=== PATIENT | female | born 1975 | race Caucasian/White ===

== ENCOUNTER 2022-07-14 08:15 | Outpatient (CLI) | payer OTHER, SELFPAY ==
--- NOTE | ~2022-07-14 | CT_ITS ---
EXAMINATION: CT abdomen pelvis w con DATE: 07/14/2022 09:01 INDICATION: Postoperative abdominal pain. Endometrial cancer. TECHNIQUE: Computed tomography (CT) of the abdomen and pelvis was performed with 100 mL Omnipaque 350 intravenous contrast. Automated exposure control and iterative reconstruction technique were employe d. The dose-length product was 1473.47 mGy-cm. COMPARISON: None. FINDINGS: The visualized portions of the lung bases demonstrate minimal atelectasis. No pleural effus ion. The heart size is normal. No pericardial effusion. The liver demonstrates hypertrophy of left la teral segment and surface nodularity, consistent with cirrhosis. The spleen, gallbladder, pancreas, a nd right adrenal gland are normal. There is a 3.9 cm mass in left adrenal gland measuring soft tissue attenuation. There is cortical thinning of the kidneys. There are no dilated loops of bowel. There a re changes of ileocolic anastomosis. There is mild periportal lymphadenopathy, likely reactive. There is no free intraperitoneal fluid. There is a subcutaneous fluid collection in anterior abdominal wal l measuring 11.5 x 3.1 x 8.2 cm. There is severe lumbar spondylosis. IMPRESSION: 1. 11.5 x 3.1 x 8.2 cm fluid collection in anterior abdominal wall. The differential diagnosis includ es abscess, seroma, and subacute hematoma. 2. Cirrhosis of the liver. 3. 3.9 cm left adrenal mass. In the absence of known malignancy, this finding is most likely an adeno ma. Abdomen CT without and with contrast is recommended. 4. Mild periportal lymphadenopathy, likely reactive. Reviewed, dictated and finalized at location A. CONDITIONING SUPERVISOR IMPRESSION: 1. 11.5 x 3.1 x 8.2 cm fluid collection in anterior abdominal wall. The differe ntial diagnosis includes abscess, seroma, and subacute hematoma. 2. Cirrhosis of the liver. 3. 3.9 cm left adrenal mass. In the absence of known malignancy, this finding i s most likely an adenoma. Abdomen CT without and with contrast is recommended. 4. Mild periportal lymphadenopathy, likely reactive.
== END 2022-07-14 08:16 | disposition home or self-care (01) ==
PROVIDERS: Visit Provider Obstetrics & Gynecology Gynecology
DX: G89.18 Other acute postprocedural pain (principal); C54.1 Malignant neoplasm of endometrium; D35.02 Benign neoplasm of left adrenal gland; R59.0 Localized enlarged lymph nodes; K74.69 Other cirrhosis of liver
CPT/HCPCS: 74177; Q9967

== ENCOUNTER 2023-10-28 08:50 | Outpatient (CLI) | payer OTHER, SELFPAY ==
[2023-11-08 16:01] VITALS: BMI 40.2
--- NOTE | 2023-11-08 16:01 | WPDHOMESLEEP ---
Sleep Study - Home Unattended Date of Study: 10/28/23 Ordering Provider: Cindi Rodríguez APRN Interpreting Provider: Yue Sauer, DO Home Sleep Study Type: Watch PAT Height: 1.65 m Weight: 109.769 kg Body Mass Index: 40.2 Neck Circumference (inches): 16 [place]: 6 Reason for Sleep Study Loud snoring Sleep History The patient is a 48-year-old female with anxiety, depression, Crohn's disease, obesity and current tobacco use that had a sleep study ordered by her primary care for evaluation of sleep apnea. The patient denies awakening from sleep short of breath. She denies awakening at night with heartburn, belching or cough. She constantly snores loudly enough that others complain. She rarely has trouble sleeping when she has a cold. She denies waking up gasping for air throughout the night. She occasionally has breathing problems at night observed by herself or others. She occasionally sweats excessively at night. She denies having heart palpitations or irregular heartbeats during the night. She denies falling asleep during the day and never while driving. She occasionally experiences loss of muscle tone when extremely emotional. She rarely has trouble at school or work due to sleepiness. She denies feeling unable to move while waking up or falling asleep. She occasionally experiences vivid dreamlike scenes upon awakening or falling asleep. She denies feeling afraid of going to sleep. She rarely has nightmares. She occasionally remembers her dreams. She frequently has thoughts racing through her mind. She frequently feels sad, depressed and anxious. She occasionally notices parts of her body jerk. She rarely kicks during the night. She rarely has crawling and aching feelings in her legs but occasionally has leg pain during the night. She rarely grinds her teeth during sleep and rarely awakens with morning jaw pain. She is rarely bothered by pain during the day and rarely awakened by pain during the night. He rarely wakes up feeling stiff in the morning. She rarely wakes up with sore or achy muscles. She rarely wakes up with pain in the neck, spine and other joints. She goes to bed at 11:00 p.m. on weekdays and between 12-1 a.m. on the weekends. It takes her 10 minutes to fall asleep. She wakes up twice throughout the night to adjust her position and is able to fall asleep immediately. She wakes up at 7:15 a.m. on weekdays. She wakes up at 5:30 a.m. on the weekends, will stay up for an hour and then go back to bed. She will wake up between 10-11 a.m.. She typically gets 8-9 hours of sleep per night. She lives with her roommate and son. She denies consuming any caffeinated beverages within 2 hours of bedtime. She denies engaging in physical exercise before bedtime. She will watch television before falling asleep. She denies reading before falling asleep. She denies taking naps in the afternoon or the evening. She consumes 2 caffeinated beverages per day. She smokes 1 pack of cigarettes per day. She denies alcohol use. She does use marijuana. [facility] Past Medical History Medical History Acute Crohn's disease Anxiety Cancer Crohn's colitis Hypersomnia Loud snoring Sebaceous cyst Surgical History Surgical History H/O hernia repair 05/2022 H/O: hysterectomy 05/2022 Family History Family History Mother Breast cancer Bladder cancer Grandparent Lung cancer Social History Social History Smoking packs per day: 1 Smoking cigarettes per day: 20.0 Smoking status: Current some day smoker Alcohol intake: current Substance use: current Substance use type: marijuana Medications Home Medications Medication Instructions Recorded Confirmed Type busdinah
== END 2023-11-02 07:30 | disposition home or self-care (01) ==
LOC: ANHCSM 08:50
PROVIDERS: PCP Family Medicine; Visit Provider Nurse Practitioner Family
DX: G47.33 Obstructive sleep apnea (adult) (pediatric) (principal); G47.10 Hypersomnia, unspecified; R06.83 Snoring
CPT/HCPCS: 95800

== ENCOUNTER 2023-12-03 08:40 | Outpatient (CLI) | payer OTHER, SELFPAY ==
--- NOTE | 2023-12-27 00:08 | WPDSLEEPSTUD ---
Sleep Study Date of Study: 12/03/23 Ordering Provider: MARK Dudley Interpreting Physician: Cordelia Anderson MD Sleep Study Type: CPAP Titration Height: 1.65 m Weight: 109.316 kg Body Mass Index: 40.1 Neck Circumference (inches): 16 [place]: 6 Reason for Sleep Study 10/28/2023, home sleep test using WatchPat showing severe obstructive sleep apnea, AHI 49.7 with desaturation to 85% Patient presents for PAP titration Sleep History John Mclean is a 48-year-old female who had a home sleep test 10/28/2023 showing severe obstructive sleep apnea, returns for a CPAP titration. Medical co-morbidities include anxiety, depression, Crohn's disease, obesity, and tobacco use. The patient denies awakening from sleep feeling short of breath. She denies awakening at night with heartburn, belching or coughing. She constantly snores loudly enough that others complain. She rarely has trouble sleeping when she has a cold. She denies waking up gasping for air. She occasionally has breathing problems at night observed by others. She occasionally sweats excessively at night. She denies having heart palpitations or irregular heartbeats during the night. She denies falling asleep during the day and never while driving. She occasionally experiences loss of muscle tone when extremely emotional. She rarely has trouble at school or work due to sleepiness. She denies feeling unable to move while waking up or falling asleep. She occasionally experiences vivid dreamlike scenes upon awakening or falling asleep. She denies feeling afraid of going to sleep. She rarely has nightmares. She occasionally remembers her dreams. She frequently has thoughts racing through her mind. She frequently feels sad, depressed and anxious. She occasionally notices parts of her body jerk. She rarely kicks during the night. She rarely has crawling and aching feelings in her legs but occasionally has leg pain during the night. She rarely grinds her teeth during sleep and rarely awakens with morning jaw pain. She is rarely bothered by pain during the day and rarely awakened by pain during the night. He rarely wakes up feeling stiff in the morning. She rarely wakes up with sore or achy muscles. She rarely wakes up with pain in the neck, spine and other joints. Normal bedtime is 11:00 p.m. on weekdays and between 12-1 a.m. on the weekends. She falls asleep within 10 minutes, and she wakes twice throughout the night to adjust her position, returning to sleep immediately. She wakes up at 7:15 a.m. on weekdays. She wakes up at 5:30 a.m. on the weekends, will stay up for an hour and then go back to bed. She wakes between 10-11 a.m.. She typically gets 8-9 hours of sleep per night. She lives with her roommate and son. She denies taking naps in the afternoon or the evening. Habits: Tobacco : 1 ppd Caffeine: 2 caffeinated beverages per day. Alcohol: none Recreational substances: marijuana. [facility] Past Medical History Medical History (Updated 12/27/23 @ 09:53 by Cordelia Anderson MD) Acute Crohn's disease Anxiety Cancer Crohn's colitis Hypersomnia DONNY (obstructive sleep apnea) Sebaceous cyst Surgical History Surgical History H/O hernia repair 05/2022 H/O: hysterectomy 05/2022 Family History Family History Mother Breast cancer Bladder cancer Grandparent Lung cancer Social History Social History (Updated 11/23/23 @ 14:02 by Jigna Rodriguez MA) Smoking packs per day: 1 Smoking cigarettes per day: 20.0 Smoking status: Current every day smoker Alcohol intake: current Substance use: current Substance use type: marijuana Medications Home Medications Medication Instructions Recorded Confirmed Type buspirone 5 mg tablet 5 mg PO BID #30 tabs 10/22/23 10/22/23 Rx chlorhexidine gluc
[2023-12-27 10:03] VITALS: BMI 40.1
== END 2023-12-04 07:41 | disposition home or self-care (01) ==
LOC: ANHCSM 08:41
PROVIDERS: PCP Family Medicine; Visit Provider Nurse Practitioner
DX: G47.33 Obstructive sleep apnea (adult) (pediatric) (principal); Z68.41 Body mass index [BMI] 40.0-44.9, adult
CPT/HCPCS: 95811

== ENCOUNTER 2024-01-19 00:23 | Day surgery (SDC) | payer OTHER, SELFPAY ==
[2024-01-13 12:34] VITALS: BMI 39.9
--- NOTE | 2024-01-13 12:51 | PC.NURSE ---
Report to the Outpatient Waiting Room, entrance under the green pavilion located off [facility], at time _0830_ on date _[id number]_. Planned Procedure Time: _1030_. Time changes happen often and if your time is changed the preop area will call you the afternoon before. - You and your visitor will be asked to self-screen and do not enter if you have any COVID symptoms. - A mask is optional within the hospital at this time. Patients may have clear liquids (water, carbonated beverages, clear teas, apple juice) until 3 hours prior to surgery with a maximum of 20 ounces. - No food from midnight until time of surgery Take the following medications with a SIP of water the morning of surgery: ___Buspirone if needed. DO NOT STOP ANY OF YOUR OTHER PRESCRIPTION MEDICATIONS PRIOR TO SURGERY ?EXCEPT THE FOLLOWING Medications to discontinue per physician None Check with Dr Bustamante's office if ok to use Ibuprofen before surgery. Date to take last dose Please no make-up, nail tamazight, hairspray, perfume, deodorant, or body powder the day of surgery. No jewelry (including any body piercings) or valuables the day of surgery, leave them at home. Please take a shower or bath the night before, or the morning of, surgery with an antibacterial soap. Wear comfortable, loose fitting clothing. - Jewelry must be removed prior to entering the operating room. Rings and piercings that are not removed may be cut off. - The hospital will not accept responsibility for valuables. - Please leave all valuables, including medications, at home the day of surgery. If you are going home after surgery, a licensed jeep driver must drive you home. - NO public transportation without another adult if you receive anesthesia. - We recommend that an adult stay with you for 24 hours following discharge. - We also recommend that you do not drive, make important decision, drink alcoholic beverages, or take any drugs that were not prescribed by your health care provider for at least 24 hours after your discharge time. Follow any additional instructions given to you from your surgeon. If you or anyone in your household have experienced Covid symptoms in the past week, please notify your surgeon or the nurse liaison at the phone number below for possible testing. Telephone instructions given to __John___and asked if any additional questions and then verbalized understanding. Patient advised to call surgeon office or pre surgery nurse liaison [phone] if any additional questions.
--- NOTE | 2024-01-13 13:04 | PC.NURSE ---
Report to the Outpatient Waiting Room, entrance under the green pavilion located off [facility], at time _0830_ on date _[id number]_. Planned Procedure Time: _1030_. Time changes happen often and if your time is changed the preop area will call you the afternoon before. - You and your visitor will be asked to self-screen and do not enter if you have any COVID symptoms. - A mask is optional within the hospital at this time. May have clear liquids (water, carbonated beverages, clear teas, apple juice) until 230am prior to surgery with a maximum of 20 ounces. - No food from midnight until time of surgery. No drink after 230am. Take the following medications with a SIP of water the morning of surgery: __Buspirone if needed DO NOT STOP ANY OF YOUR OTHER PRESCRIPTION MEDICATIONS PRIOR TO SURGERY ?EXCEPT THE FOLLOWING Medications to discontinue per physician None Check with Dr Bustamante's office before taking ibuprofen prior to surgery. Date to take last dose Please no make-up, nail brazilian, hairspray, perfume, deodorant, or body powder the day of surgery. No jewelry (including any body piercings) or valuables the day of surgery, leave them at home. Please take a shower or bath the night before, or the morning of, surgery with an antibacterial soap. Wear comfortable, loose fitting clothing. - Jewelry must be removed prior to entering the operating room. Rings and piercings that are not removed may be cut off. - The hospital will not accept responsibility for valuables. - Please leave all valuables, including medications, at home the day of surgery. If you are going home after surgery, a licensed contract driver must drive you home. - NO public transportation without another adult if you receive anesthesia. - We recommend that an adult stay with you for 24 hours following discharge. - We also recommend that you do not drive, make important decision, drink alcoholic beverages, or take any drugs that were not prescribed by your health care provider for at least 24 hours after your discharge time. Follow any additional instructions given to you from your surgeon. If you or anyone in your household have experienced Covid symptoms in the past week, please notify your surgeon or the nurse liaison at the phone number below for possible testing. Telephone instructions given to __John__and asked if any additional questions and then verbalized understanding. Patient advised to call surgeon office or pre surgery nurse liaison [phone] if any additional questions.
--- NOTE | 2024-01-19 06:44 | PM.HPGS ---
History of Present Illness History of Present Illness Chief complaint: pilar cyst on scalp Narrative: Patient seen and examined in pre-operative holding area. No interval change in medical history or symptoms. Patient recalls previous discussion of benefits and alternatives to procedure. Continues to desire to proceed with excision of six scalp masses with complex closure. Reviewed procedure, post-op expectations and risks including but not limited to bleeding, infection, injury to nerve/vessel, recurrence, no change or worsening of symptoms. I discussed the possible use of assistants and their participation in the case. Patient stated understanding and signed the consent form wishing to proceed. Review of Systems Review of Systems: All systems reviewed & are unremarkable except as noted in HPI and below PMFSH Past Medical History Medical History (Updated 12/29/23 @ 16:24 by Cindi Rodríguez APRN) Acute Crohn's disease Anxiety Cancer Crohn's colitis Hypersomnia Lower leg pain Nerve pain DONNY (obstructive sleep apnea) Sebaceous cyst Surgical History Surgical History H/O hernia repair 05/2022 H/O: hysterectomy 05/2022 Family History Family History Mother Breast cancer Bladder cancer Grandparent Lung cancer Social History Social History (Updated 11/23/23 @ 14:02 by Jigna Rodriguez MA) Smoking packs per day: 1 Smoking cigarettes per day: 20.0 Years smoked: 30 Smoking pack-years: 30.00 Smoking status: Current every day smoker Tobacco type: cigarettes Alcohol intake: current Substance use: current Substance use type: marijuana Other substance usage details: daily Living arrangements: with family Spiritual care concerns: No Meds Home Medications and Allergies Home Medications Medication Instructions Recorded Confirmed Type CPAP supplies #1 ea 12/27/23 Rx buspirone 5 mg tablet 5 mg PO BID PRN Anxiety 01/13/24 01/13/24 History ibuprofen 800 mg tablet (IBU) 800 mg PO TID PRN Pain 01/13/24 01/13/24 History valacyclovir 500 mg tablet 500 mg PO DAILY PRN Outbreak 01/13/24 01/13/24 History tramadol 50 mg tablet 50 mg PO Q6H PRN pain #12 tabs 01/19/24 Rx Allergies Allergy/AdvReac Type Severity Reaction Status Date / Time No Known Allergies Allergy Verified 01/13/24 15:04 Exam Narrative: unchanged Assessment and Plan Assessment and plan (1) Pilar cyst: Code(s): L72.11 - Pilar cyst Status: Acute Assessment and Plan: cont as above
--- NOTE | 2024-01-19 06:45 | W.PM.PROC2 ---
Procedure Note - Detailed Date of Procedure 01/19/24 Pre-op Diagnosis pilar cysts on scalp Post-op Diagnosis Same Procedure Performed excision pilar cyst x6 Surgeon Madhu Bustamante MD Otolaryngology Rep blair viramontes pa-c Anesthesia MAC Description of Procedure Patient was seen in the preoperative area where consent form was signed and the location of the 6 scalp cysts were marked. She was taken back to the operating room and placed on the table in the supine position. Time-out was performed with Anesthesia, surgeon, and staff agreeing on patient's name, site, and surgery to be performed. SCDs were placed on the lower extremities and inflated. Antibiotics given IV. After after general anesthesia was administered the scalp was prepped and draped in the sterile fashion. I took my attention to the largest cyst at right cheondoism where I proceeded with making an elliptical incision around the thin affected skin over the cyst through skin and dermis with a 15 blade scalpel including excess skin on the ends to account for dog ears. Littler scissors were used to spread around the cyst. The cyst was excised. I irrigated with normal saline. Skin was closed with 3-0 Vicryl and 4-0 chromic.The cyst diameter was 5cm I took my attention to the 2nd cyst on right postauricular area where I proceeded with making an elliptical incision around the thin affected skin over the cyst through skin and dermis with a 15 blade scalpel including excess skin on the ends to account for dog ears. Littler scissors were used to spread around the cyst. The cyst was excised. I irrigated with normal saline. Skin was closed with 3-0 Vicryl and 4-0 chromic.The cyst diameter was 1.5cm I took my attention to the 3rd cyst on vertex where I proceeded with making an elliptical incision around the thin affected skin over the cyst through skin and dermis with a 15 blade scalpel including excess skin on the ends to account for dog ears. Littler scissors were used to spread around the cyst. The cyst was excised. I irrigated with normal saline. Skin was closed with 3-0 Vicryl and 4-0 chromic.The cyst diameter was 1.6cm I took my attention to the 4th cyst on anterior vertex where I proceeded with making an elliptical incision around the thin affected skin over the cyst through skin and dermis with a 15 blade scalpel including excess skin on the ends to account for dog ears. Littler scissors were used to spread around the cyst. The cyst was excised. I irrigated with normal saline. Skin was closed with 3-0 Vicryl and 4-0 chromic.The cyst diameter was 1.8cm I took my attention to the 5th cyst on occiput where I proceeded with making an elliptical incision around the thin affected skin over the cyst through skin and dermis with a 15 blade scalpel including excess skin on the ends to account for dog ears. Littler scissors were used to spread around the cyst. The cyst was excised. I irrigated with normal saline. Skin was closed with 3-0 Vicryl and 4-0 chromic.The cyst diameter was 1cm I took my attention to the 6th cyst on left occipitalparietal where I proceeded with making an elliptical incision around the thin affected skin over the cyst through skin and dermis with a 15 blade scalpel including excess skin on the ends to account for dog ears. Littler scissors were used to spread around the cyst. The cyst was excised. I irrigated with normal saline. Skin was closed with 3-0 Vicryl and 4-0 chromic.The cyst diameter was 1.5cm Total length of closure was 10cm A dressing of bacitracin and head wrap was applied. The patient was awakened from anesthesia and transferred to the recovery room in stable condition. Complications: None Estimated blood loss: 5 cc Disposition: Patient tolerated the procedure well and will be going later today Blair Viramontes PA-C was essential for positioning, reetraction, closure and dressing placement [facility] [place] Billing Surgery - Charge Forward: Surgery Billing ([id number]
[2024-01-19 09:02] LABS: Glucose Point of Care 116 mg/dl (65-105)
--- NOTE | 2024-01-19 09:09 | WPDHPUPDATE1 ---
History and Physical Update Update Date/Time: 01/19/24 09:09 Patient seen and examined in pre-operative holding area. No interval change in medical history or symptoms. Patient recalls previous discussion of benefits and alternatives to procedure. Continues to desire to proceed with excision of six scalp masses with complex closure. Reviewed procedure, post-op expectations and risks including but not limited to bleeding, infection, injury to nerve/vessel, recurrence, no change or worsening of symptoms. I discussed the possible use of assistants and their participation in the case. Patient stated understanding and signed the consent form wishing to proceed.
[2024-01-19 09:22] VITALS: BP 133/95; PULSE 83; RESP 14; TEMP 36.5; O2SAT 98
--- NOTE | 2024-01-19 09:25 | WPDANESEPPF ---
Anes - Initial Pre Proc Eval Procedure: Operation Date: 01/19/24 10:30 Proposed Procedures p Excision of Scalp Mass Times Six with Complex Closure - Madhu Bustamante MD Date/Time: 01/19/24 09:25 Surgeon: Madhu Bustamante MD Pre Op Diagnosis: pilar cyst on scalp Patient Data Age: 48 Gender: F Height: 1.65 m Weight: 109 kg Allergies Allergy/AdvReac Type Severity Reaction Status Date / Time No Known Allergies Allergy Verified 01/19/24 09:20 Home Medications Medication Instructions Recorded Confirmed Type CPAP supplies #1 ea 12/27/23 Rx buspirone 5 mg tablet 5 mg PO BID PRN Anxiety 01/13/24 01/13/24 History ibuprofen 800 mg tablet (IBU) 800 mg PO TID PRN Pain 01/13/24 01/13/24 History valacyclovir 500 mg tablet 500 mg PO DAILY PRN Outbreak 01/13/24 01/13/24 History tramadol 50 mg tablet 50 mg PO Q6H PRN pain #12 tabs 01/19/24 Rx Laboratory Tests 01/19/24 08:58 POC Capillary Glucose 116 H mg/dl (65-105) Patient hx anesthesia problems: none Family hx anesthesia problems: none Results Review: All pre-operative results and documents have been reviewed as part of the pre-operative evaluation. [facility] Past Medical History Medical History Acute Crohn's disease Anxiety Cancer Crohn's colitis Hypersomnia Lower leg pain Nerve pain DONNY (obstructive sleep apnea) Sebaceous cyst Surgical History Surgical History H/O hernia repair 05/2022 H/O: hysterectomy 05/2022 Family History Family History Mother Breast cancer Bladder cancer Grandparent Lung cancer Social History Social History Smoking packs per day: 1 Smoking cigarettes per day: 20.0 Years smoked: 30 Smoking pack-years: 30.00 Smoking status: Current every day smoker Tobacco type: cigarettes Alcohol intake: current Substance use: current Substance use type: marijuana Other substance usage details: daily Living arrangements: with family Spiritual care concerns: No Anes - Eval Final PreProcedure Day of Procedure 01/19/24 09:25 Patient weight: normal Heart: regular rate and rhythm Lungs: clear to auscultation Airway: Mallampati scale class II Neurological: alert and oriented Last oral intake: >/= 8 hours ASA classification: III Emergent: no Anesthetic plan: proceed Anesthesia type and monitoring: general LMA and standard monitoring Results Review: All pre-operative results and documents have been reviewed as part of the pre-operative evaluation. Smoker, recently dx w DONNY, awaiting CPAP device. Informed Consent: The patient's anesthetic plan and its attendant risks and benefits were discussed with the patient/family/POA. Questions were solicited and answers provided to the satisfaction of the patient/family/POA.
[2024-01-19 09:33] VITALS: BMI 38.2
[2024-01-19] MEDS: LACTATED RINGERS 1,000 ML 30 ML IV CONT (09:52)
[2024-01-19] MEDS: ceFAZolin 2 GM/D5W 50 ML 2 GM/50 ML BAG IVPB (10:10)
[2024-01-19] MEDS: BUPivacaine HCL 0.5% PF 30 ML VIAL INFILTRATE (10:15)
[2024-01-19] MEDS: LIDO 1%/EPINEPHRINE 1:100,000 50 ML VIAL INFILTRATE (10:15)
[2024-01-19 11:16] VITALS: BP 130/77; PULSE 77; RESP 14; O2SAT 100
[2024-01-19 11:20] VITALS: O2SAT 100
[2024-01-19 11:23] LABS: Glucose Point of Care 135 mg/dl (65-105)
[2024-01-19 11:30] VITALS: BP 130/77; PULSE 77; RESP 16; O2SAT 99
[2024-01-19 11:45] VITALS: BP 134/78; PULSE 65; RESP 16; O2SAT 100
[2024-01-19] MEDS: oxyCODONE HCL (*CRX) 5 MG TAB IR PO (11:50)
[2024-01-19 12:15] VITALS: BP 133/77; PULSE 64; RESP 16; O2SAT 98
== END 2024-01-19 12:19 | disposition home or self-care (01) ==
PROVIDERS: PCP Family Medicine; Visit Provider Plastic Surgery
PROC: (CPT 11426; principal; 2024-01-19 10:30)
DX: L72.11 Pilar cyst (principal); L72.0 Epidermal cyst; K50.90 Crohn's disease, unspecified, without complications; G47.33 Obstructive sleep apnea (adult) (pediatric); F41.9 Anxiety disorder, unspecified; F17.210 Nicotine dependence, cigarettes, uncomplicated; F12.90 Cannabis use, unspecified, uncomplicated; Z79.899 Other long term (current) drug therapy
CPT/HCPCS: 11426; 11422 ×4; 11421; 12034; 82948; 88305; A9270; J0690; J2250; J2405; J2704; J3010; J7120

== ENCOUNTER 2025-03-20 18:08 | Emergency (ER) | payer OTHER, SELFPAY ==
--- NOTE | ~2025-03-20 | CT_ITS ---
CT abdomen pelvis w con Clinical History: hx Crohn's, gi bleed, llq abd pain . Comparison: CT 07/14/2022 Technique: Axial images lung bases to symphysis pubis IV contrast information not listed in PACS Coronal, sagittal reformats CT images acquired with automatic exposure control for dose reduction DLP: 1561 mGy-cm Findings: Lung bases: Clear. Visualized heart and pericardium: Unremarkable. Liver: Cirrhosis. Steatosis. Diffuse hypodense foci likely regenerative nodules. Gallbladder: Unremarkable. Spleen: Mildly enlarged. Pancreas: Unremarkable. Adrenal glands: Unchanged adenoma left side. Kidneys: Right kidney- No hydronephrosis. No renal stones. Left kidney- No hydronephrosis. No renal stones. Distal esophagus/stomach: Unremarkable. Small bowel loops: Normal caliber and wall thickness. Colon: Right hemicolectomy. Nodes: Unchanged periportal nodes. Peritoneum: No ascites. No free air. Urinary bladder: Unremarkable. Uterus: Removed. Adnexa: No masses. Bones: No acute bony abnormality. Soft tissues: Scarring along midline abdominal wall. Scattered left abdominal wall fat necrosis. Aorta: No aneurysm or dissection. IVC: Unremarkable. Main portal vein/SMV/splenic vein: Patent. IMPRESSION: 1. No acute findings. 2. Additional findings as above. Reviewed, dictated and finalized at location R.
[2025-03-20 18:10] VITALS: BP 152/84; PULSE 96; RESP 16; TEMP 36.6; O2SAT 98
[2025-03-20 19:23] LABS: Hematocrit 38.3 % (37.0-47.0); Hemoglobin 13.0 g/dL (12.0-15.0); Immature Granulocyte Percent A 0.3 % (0-0.5); Immature Platelet Fraction Pct 3.5 % (0.9-11.2); Lymphocytes Absolute Auto 2.60 K/mm3 (0.9-3.2); Mean Corpuscular HGB Conc 33.9 g/dl (32-36); Mean Corpuscular Hemoglobin 29.8 pg (26-34); Mean Corpuscular Volume 87.8 fl (80-100); Nucleated Red Blood Cells Absolute Auto 0.000 K/mm3 (0.0-0.012); Nucleated Red Blood Cells Perc 0.0 % (0.0-0.2); Platelet Count Result 130 k/mm3 (150-375); Red Blood Count 4.36 M/mm3 (4.2-5.4); White Blood Count 6.5 K/mm3 (4.5-10.0)
--- OUTSIDE RECORDS SUMMARY | 2025-03-20 19:23 | XMS_ITS | Clinical Summary ---
Author Organization [facility] Address [address] [place] [address] Care Team Providers Care Claims Agent Right Of Way Name Role Phone Unavailable Primary Care Provider Unavailabl e Source Comments [facility],non-owned Affiliates and Associated Physician Practices is amultiple site organization consisting of ambulatory clinics and hospital sitesin [place], [place], [place] and [place]. This disclosure is being madepursuant to the Care Everywhere program and may not contain all information available regarding this patient. Last updated 18.[employer] Allergies No known active allergies Medications * Be aware that medications may not be up to date on this document. Alwaysverify current medications with the patient. valACYclovir (Valtrex) 500 MG tablet Take 2 (two) tablets by mouth once daily 2 Active acetaminophen (Tylenol) 325 MG tablet Take 2 (two) tablets by mouth every 4 hours as needed for Fever or Pain Maximum allowable Acetaminophen amount = 4 Grams (4000 mg) / 24 hours. 50 tablet 2 Active Additional Information Patient not taking.Reported on 08/06/2022 traMADol (Ultram) 50 MG tablet Take 1 (one) tablet by mouth every 6 hours as needed for Pain 12 tablet 2 Active Additional Information Patient not taking.Reported on 08/06/2022 HYDROcodone-ac etaminophen ([place]) 5-325 MG tablet Take 1 (one) tablet to 2 (two) tablets by mouth every 6 hours as needed 3 Active citalopram (CeleXA) 10 MG tablet Take 1 (one) tablet by mouth once daily 90 tablet 3 Active Active Problems Problem Noted Date Diagnosed Date Endometrial adenocarcinoma 06/09/2022 S/P SCARLET-BSO 06/09/2022 Endometrial hyperplasia 05/12/2022 Class 3 severe obesity without serious comorbidi ty in adult 03/02/2022 Social anxiety disorder 12/27/2020 Dental caries 02/05/2020 Examination 06/29/2013 Current smoker 07/31/2010 Crohn's disease of both small and large intestin e 02/22/2007 Family History Medical History Relation Name Comments Cancer - Bladder Mother Cancer - Breast Mother Relation Name Status Comments Mother Social History Tobacco Use Types Packs/Day Years Used Date Smoking Tobacco: Every Day Cigarettes 1 32.7 Started: 1992 Smokeless Tobacco: Never Tobacco Cessation:Ready to Q uit: Not Asked; Counseling Given: Not Answered Alcohol Use Standard Drinks/Week Comments Not Currently 0 (1 standard drink = 0.6 oz pur e alcohol) rare Comments No Sex and Gender Information Value Date Recorded Sex Assigned at Not on file Legal Sex Female 6:16 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 Gender Identity Not on file Sexual Orientation Not on file Last Filed Vital Signs Vital Sign Reading Time Taken Comments Blood Pressure 126/78 08/06/2022 10:32 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 Pulse 79 07/27/2022 9:10 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 Temperature 37.1 C (98.8 F) 07/27/2022 7:43 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 Respiratory Rate 16 07/27/2022 9:20 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 Oxygen Saturation 95% 07/27/2022 9:20 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 Inhaled Oxygen Concentration - - Weight 105.7 kg (233 lb) 08/06/2022 10:32 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 Height 165.1 cm (5' 5) 08/06/2022 10:32 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 Body Mass Index 38.77 08/06/2022 10:32 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 Plan of Treatment Health Maintenance Due Date Last Done Comments COLOGUARD (AGES 45-75) - COL ON CA SCREENING 1975 COLON MONITORING 1975 COLONOSCOPY - COLON CA SCREENING 1975 CT COLONOGRAPHY - COLON CA SCREENING 1975 Colorectal Cancer Screening 1975 FIT - COLON CA SCREENING 1975 FLEX SIG - COLON CA SCREENING 1975 LIPID TESTING 1975 MAMMOGRAM 1975 HIV SCREENING 1990 HEPATITIS C SCREENING 03/03/1993 DTAP/TDAP/TD VACCINES (1 - Tdap) 1994 HEPATITIS B VACCINE (1 of 3 - 19+ 3-dose series) 1994 PNEUMOCOCCAL VACCINE 50+ (1 of 2 - PCV) 1994 DEPRESSION SCREENING 07/05/2024 COVID-19 VACCINE (1 - 2023-2 5 season) 2025 INFLUENZA VACCINE (#1) 2025 0, 04/04/2019, 04/16/2011 ZOSTER VACCINE (1 of 2) 2025 SCREENING FOR DIABETES 05/14/2025 2, 05/13/2022, 05/06/2022 HIB VACCINE Aged Out No longer eligi ble based on patient's age to complete this topic HPV VACCINE Aged Out No longer eligi ble based on patient's age to complete this topic MENINGOCOCCAL (Group B) VACCINE SHARED DECISION-MAKING Aged Out No longer eligible based on patient's age to complete this topic MENINGOCOCCAL GROUPS A/C/Y/W VACCINE Aged Out No longer eligible b ased on patient's age to complete this topic Medical Devices Implanted Type Area Drapery And Upholstery Estimator Device Identifier Shelf Expiration Date Model / Serial / Lot Mesh Srg Phasix 8x6in Rect Mfl Scfld Implanted:Qty: 1 on 05/12/2022 by Edel Dia MD at [facility] [employer] [id number] / / [id number] Description:JJ Procedures Procedure Name Priority Date/Time Associated Diagnosis Comments RENAL FUNCTION PANEL AM Draw 05/14/2022 6:56 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 from Last 3 Months or Most Recently Relevant to Health Maintenance Results * (ABNORMAL) RENAL FUNCTION PANEL (05/14/2022 6:56 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) [facility] Glucose 99 70 - 105 mg/dL 05/14/2022 8:01 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 [facility] Sodium 141 136 - 145 mmol/L 05/14/2022 8:[address] [facility] Potassium 3.7 3.5 - 5.1 mmol/L 05/14/2022 8:[address] [facility] Chloride 107 98 - 107 mmol/L 05/14/2022 8:[address] [facility] CO2 21(L) 23 - 31 mmol/L 05/14/2022 8:[address] [facility] Calcium 8.7 8.4 - 10.4 mg/dL 05/14/2022 8:[address] [facility] Anion Gap 13 8 - 18 mmol/L 05/14/2022 8:[address] [facility] BUN 11 7 - 18.7 mg/dL 05/14/2022 8:[address] [facility] Creatinine 0.80 0.57 - 1.11 mg/dL 05/14/2022 8:[address] [facility] Albumin 3.4(L) 3.5 - 5.2 gm/dL 05/14/2022 8:[address] [facility] Phosphorus 2.6 2.3 - 4.7 mg/dL 05/14/2022 8:[address] [facility] eGFR by CKD-EPI >90 >=90 mL/min/1.7 3 m2 05/14/2022 8:[address] [facility] Blood BLOOD SPECIMEN / Unknown Lab Venipuncture / Unknown 05/14/2022 6:56 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 05/14/2022 7:37 AM [facility] Sai Little MD LAB - CHEMISTRY ORDERABLES Final Result Performing Organization Address City/State/[facility] Co de Phone Number [facility] [address] [place] [address] from Last 3 Months or Most Recently Relevant to Health Maintenance Insurance [address] [address] [employer] [place] * Guarantor: ROMA MCLEAN Account Type Relation to Patient Date of Phone Billing Address Personal/Family [address] [place] [address] [employer] [place] SELF PAY NO INSURANCE Member Subscriber Plan / Payer (Ef fective for All Dates) Name:Roma Mclean Member ID:Not on file Relation to Subscriber:Not on file Name:ROMA MCLEAN Subscriber ID:Not on file Address: [address] [place] [address] Payer ID:Not on file Group ID:Not on file Type:Self Pay Address: [place], [place] * Guarantor: ROMA MCLEAN Account Type Relation to Patient Date of Phone Billing Address Personal/Family [address] [place] [address] [employer] [place] SELF PAY NO INSURANCE Member Subscriber Plan / Payer (Ef fective for All Dates) Name:Roma Mclean Member ID:Not on file Relation to Subscriber:Not on file Name:ROMA MCLEAN Subscriber ID:Not on file Address: [address] [place] [address] Payer ID:Not on file Group ID:Not on file Type:Self Pay Address: [place], [place] * Guarantor: ROMA MCLEAN Type Relation to Patient Date of Phone Billing Address Personal/Family [address] [place] [address] [employer] SELF PAY NO INSURANCE Member Subscriber Plan / Payer (Ef fective for All Dates) Name:Roma Mclean Member ID:Not on file Relation to Subscriber:Not on file Name:ROMA MCLEAN Subscriber ID:Not on file Address: [address] [place] [address] Payer ID:Not on file Group ID:Not on file Type:Self Pay Address: [place], [place]
--- OUTSIDE RECORDS SUMMARY | 2025-03-20 19:23 | XMS_ITS ---
Author Organization [facility] Address [address] [place] [address] Care Team Providers Care Detective Bureau Chief Name Role Phone Unavailable Primary Care Provider Unavailabl e Active Problems Problem Noted Date Diagnosed Date Endometrial adenocarcinoma 06/09/2022 S/P SCARLET-BSO 06/09/2022 Endometrial hyperplasia 05/12/2022 Class 3 severe obesity without serious comorbidi ty in adult 03/02/2022 Social anxiety disorder 12/27/2020 Dental caries 02/05/2020 Examination 06/29/2013 Current smoker 07/31/2010 Crohn's disease of both small and large intestin e 02/22/2007 Current Treatment and Therapy Plans No current plan information found. Past Treatment and Therapy Plans No past plan information found. Lifetime Dose Tracking * Chemical Lifetime Dose Automatic Entry Manual Entr y Dose Length Product 485 mGy-cm 485 mGy-cm 0 mGy-cm
--- OUTSIDE RECORDS SUMMARY | 2025-03-20 19:23 | XMS_ITS | Clinical Summary ---
Author Organization [facility] Address [address] [place] [address] Phone Care Team Providers Care Personal Security Specialist Name Role Phone Provider, None Primary Care Provider Unavailabl e Allergies No known active allergies Medications traMADol (ULTRAM) 50 MG Tablet Take 1 Tab by mouth every 6 hours as needed for Moderate or more severe pain. 12 Tab 09/10/2019 Active HYDROcodone-gaurang taminophen (NORCO) 5-325 MG Tablet Take 1 Tab by mouth every 6 hours as needed for Severe pain. 20 Tab 04/10/2020 Active Active Problems Problem Noted Date Diagnosed Date Gross hematuria 03/20/2016 Family History Medical History Relation Name Comments Lung Cancer Maternal Grandfather Lung Cancer Maternal Grandmother Bladder cancer Mother Breast Cancer Mother Relation Name Status Comments Maternal Grandfather Maternal Grandmother Mother Social History Tobacco Use Types Packs/Day Years Used Date Smoking Tobacco: Former Cigarettes 1 20 Smokeless Tobacco: Never Tobacco Cessation:Counseling Given: Not Answered Alcohol Use Standard Drinks/Week Comments Yes 0 (1 standard drink = 0.6 oz pur e alcohol) Rarely Sexually Active Control Partners Comments Yes Male Comments No Sex and Gender Information Value Date Recorded Sex Assigned at Not on file Legal Sex Female 9:02 PM CDT Gender Identity Not on file Sexual Orientation Not on file Last Filed Vital Signs Vital Sign Reading Time Taken Comments Blood Pressure 125/71 07/11/2024 11:45 PM GROUP EXERCISE CLASS INSTRUCTOR Pulse 71 07/12/2024 12:15 AM GROUP EXERCISE CLASS INSTRUCTOR Temperature 36.8 C (98.3 F) 07/11/2024 9:01 PM GROUP EXERCISE CLASS INSTRUCTOR Respiratory Rate 16 07/11/2024 9:01 PM GROUP EXERCISE CLASS INSTRUCTOR Oxygen Saturation 96% 07/12/2024 12:15 AM GROUP EXERCISE CLASS INSTRUCTOR Inhaled Oxygen Concentration - - Weight 113.4 kg (250 lb) 07/11/2024 9:01 PM GROUP EXERCISE CLASS INSTRUCTOR Height 165.1 cm (5' 5) 07/11/2024 9:01 PM GROUP EXERCISE CLASS INSTRUCTOR Body Mass Index 41.6 07/11/2024 9:01 PM GROUP EXERCISE CLASS INSTRUCTOR Plan of Treatment Health Maintenance Due Date Last Done Comments Hepatitis C Virus (HCV) Screening 1975 TdaP Immunization 1975 Hepatitis B Immunization (1 of 3 - 19+ 3-dose series) 1994 Cologuard 2020 Colonoscopy 2020 Colorectal Cancer Screening 2020 Immunochemical Fecal Occult Blood 2020 Mammogram 08/10/2024 08/10/2023, 10/07/2016 Influenza Immunization (#1) 2025 1007/2019, 04/04/2019, 04/16/2011 SARS-COV-2 Immunization ( season) 2025 Respiratory Syncytial Virus (RSV) Immunization (Adult) (1 - 1-dose 75+ series) 2050 Pneumococcal Immunization Combined Aged Out 12/10/2015 No longer eligible b ased on patient's age to complete this topic Discussion re Starting/Frequency of Mammograms Completed 08/10/2023, 10/07/2016 Human Papillomavirus (HPV) Immunization Aged Out No longer eligible b ased on patient's age to complete this topic Meningococcal Immunization (ACWY) Aged Out No longer eligible b ased on patient's age to complete this topic Rotavirus Immunization Aged Out No lo nger eligible based on patient's age to complete this topic Procedures Procedure Name Priority Date/Time Associated Diagnosis Comments PEG SCREENING BILATERAL DIGITAL W CAD Routine 10/07/2016 2:55 PM CDT Encounter for screening mammogram for malignant neoplasm of breast from Last 3 Months or Most Recently Relevant to Health Maintenance Results * PEG SCREENING BILATERAL DIGITAL W CAD (10/07/2016 2:55 PM CDT) Anatomical Region Laterality Modality breast Bilateral Mammography 10/07/2016 2:33 PM CDT Narrative 10/09/2016 4:32 PM CDT - PEG SCREENING BILATERAL DIGITAL W CAD BILATERAL DIGITAL SCREENING MAMMOGRAM WITH CAD WITH MEDIOLATERAL OBLIQUE CRANIOCAUDAL: 10/07/2016 The study was acquired using digital technology and interpreted from soft copy. Current study was also evaluated with ICAD version 7.2. CLINICAL: Routine screening. Patient has no complaints. No personal history of cancer. Mother had breast cancer. COMPARISONS: Comparison is made to exam dated: 10/20/2006 [facility]. BREAST TISSUE:There are scattered fibroglandular densities in both breasts. FINDINGS: No significant masses, calcifications, or other findings are seen in either breast. There has been no significant interval change. IMPRESSION: BI-RAD 1 NEGATIVE There is no mammographic evidence of malignancy. A 1 year screening mammogram is recommended. The patient has been or will be contacted. The patient will be entered into a reminder system with a target due date of 1 year for her next screening exam. Electronically signed by: Cecil Roca M.D. bs/kirsten:10/09/2016 08:58:07 Oil Heaterman: Chika MCNULTY)(Diana), [facility] letter sent: Normal Exam Reading location: [facility] BI-RADS: 1 Negative Procedure Note Cecil Roca MD - 10/09/2016 - PEG SCREENING BILATERAL DIGITAL W CAD BILATERAL DIGITAL SCREENING MAMMOGRAM WITH CAD WITH MEDIOLATERAL OBLIQUE CRANIOCAUDAL: 10/07/2016 The study was acquired using digital technology and interpreted from soft copy. Current study was also evaluated with ICAD version 7.2. CLINICAL: Routine screening. Patient has no complaints. No personal history of cancer. Mother had breast cancer. COMPARISONS: Comparison is made to exam dated: 10/20/2006 [facility]. BREAST TISSUE:There are scattered fibroglandular densities in both breasts. FINDINGS: No significant masses, calcifications, or other findings are seen in either breast. There has been no significant interval change. IMPRESSION: BI-RAD 1 NEGATIVE There is no mammographic evidence of malignancy. A 1 year screening mammogram is recommended. The patient has been or will be contacted. The patient will be entered into a reminder system with a target due date of 1 year for her next screening exam. Electronically signed by: Cecil flores/kirsten:10/09/2016 08:58:07 Oil Heaterman: Chika MCNULTY)(M), [facility] letter sent: Normal Exam Reading location: [facility] BI-RADS: 1 Negative us Jes Buitrago MD IMG MAMMO ORDERABLES Final Resu lt from Last 3 Months or Most Recently Relevant to Health Maintenance Insurance [place]ID [place] Care Teams Personal Security Specialist Relationship Specialty Start Date End Date Provider, None [place] PCP - General 09/10/19
[2025-03-20 19:36] LABS: Alanine Aminotransferase 47 U/L (6-35); Albumin Level 4.1 g/dL (3.5-5.1); Alkaline Phosphatase 134 U/L (38-126); Anion Gap 9 mmol/L (4-12); Aspartate Amino Transferase 45 U/L (14-36); Bilirubin,Total 0.7 mg/dL (0.2-1.3); Blood Urea Nitrogen 15 mg/dL (7-17); Calcium 8.9 mg/dL (8.4-10.2); Carbon Dioxide 23 mmol/L (22-30); Chloride 101 mmol/L (98-107); Estimated CRCL calculation 90 ml/min; Estimated Glomerular Filt Rate > 60; Glucose 386 mg/dL (65-110); Potassium 3.9 mmol/L (3.4-5.0); Sodium 133 mmol/L (137-145); Total Protein 7.5 g/dL (6.3-8.2)
--- NOTE | 2025-03-20 19:44 | ED.GIBLEED ---
HPI - GI Bleed General Chief complaint: GI Bleed Stated complaint: brittany been pooping blood all day Time Seen by Provider: 03/20/25 19:11 History of Present Illness HPI Narrative: This is a 50-year-old female with history of Crohn's disease who presents to the ED for GI bleed. Patient states that she went to work today and she has had 2-3 episodes of bright red blood per rectum there is new for her. She has never had this before she has not been following with a GI physician for the past several years. Her last colonoscopy was greater than 10 years ago. Denies any recent weight changes. Denies nausea, vomiting. She has had some vague abdominal pain but this is not unusual for her. Denies changes in urination. No known history of hemorrhoids. Related Data Allergies Allergy/AdvReac Type Severity Reaction Status Date / Time No Known Allergies Allergy Verified 03/20/25 18:12 Review of Systems Review of Systems: Gen.: Denies fevers or chills Eyes: Denies eye pain or visual change ENT: Denies congestion Respiratory: Denies shortness of breath or cough CV: Denies chest pain or palpitations GI: As per HPI denies burning, urgency, frequency or hematuria Musculoskeletal: Denies back pain or muscle pain Neuro: Denies numbness, tingling, weakness or focal weakness Skin: Denies rash Except as documented, all other systems reviewed and negative COUNTS INCLUDE 234 BEDS AT THE [facility] Past Medical History Medical History Depression Lower leg pain Nerve pain DONNY (obstructive sleep apnea) Acute Crohn's disease Sebaceous cyst Crohn's colitis Cancer Anxiety Surgical History Surgical History H/O hernia repair 05/2022 H/O: hysterectomy 05/2022 Family History Family History Mother Breast cancer Bladder cancer Grandparent Lung cancer Social History Social History Smoking packs per day: 1 Smoking cigarettes per day: 20.0 Years smoked: 30 Smoking pack-years: 30.00 Smoking status: Current every day smoker Tobacco type: cigarettes Alcohol intake: current Substance use: current Substance use type: marijuana Other substance usage details: daily Current Housing: Decline to Answer Concerned About Future Housing: Decline to Answer Difficulty Paying Gas/Electric Bills: Decline to Answer Difficulty Paying for Meds: Decline to Answer Education: Decline to Answer Difficulty w/ Childcare or Family Care: Decline to Answer Living arrangements: with family Spiritual care concerns: No Exam Narrative: APPEARANCE: No acute distress, nontoxic, resting in bed EYES: EOMI HEENT: Normocephalic, atraumatic, OMM RESPIRATORY: No respiratory distress Clear to auscultation bilaterally with no rhonchi wheezing or rales. CARDIOVASCULAR: Regular rate and rhythm without murmurs rubs or gallops. ABDOMINAL: Obese. Soft, mild left lower quadrant tenderness to palpation. No rebound or guarding. MUSCULOSKELETAl: Moves all extremities. No clubbing, cyanosis or edema. NEURO: Awake and alert. Following commands, speech normal, no focal deficits SKIN:: Warm, dry. No rashes lesions or abrasions PSYCHIATRIC: Normal affect/mood, Course Vital Signs Vital signs: Vital Signs Temperature 97.9 F 03/20/25 18:10 Pulse Rate 96 03/20/25 18:10 Respiratory Rate 16 03/20/25 18:10 Blood Pressure 152/84 H 03/20/25 18:10 Pulse Oximetry 98 03/20/25 18:10 Temperature 97.9 F 03/20/25 18:10 Pulse Rate 96 03/20/25 18:10 Respiratory Rate 16 03/20/25 18:10 Blood Pressure 152/84 H 03/20/25 18:10 Pulse Oximetry 98 03/20/25 18:10 MDM - GI Bleed MDM Narrative Medical decision making narrative: 50-year-old female who presented to the ED for concerns for rectal bleeding. On initial evaluation, patient was in no acute distress, afebrile and hemodynamically stable. Abdomen was soft with mild left lower quadrant tenderness palpation without rebound or guarding. Rectal exam revealed a non thrombosed small hemorrhoid. Guaiac negative. CBC was without significant abnormalities. Hyperglycemic to 386. Mildly hyponatremic to 133 but normal when corrected for hyperglycemia. CT abdomen/pelvis was obtained and showed no acute process. Patient may have had a transient episode of rectal bleeding that has subsided at this time. Her last colonoscopy was greater than 10 years ago and given her history of recurrence, she should have a colonoscopy outpatient soon. Patient is actively working with her PCP to have this scheduled. She will be given referral to GI if this cannot be arranged. Patient was to this plan. Given strict return precautions. Differential Diagnosis Differential diagnosis: Likely hemorrhoids, Upper gastrointestinal hemorrhage, Lower gastrointestinal hemorrhage, hematochezia, anal fissure and other (Crohn's flare) Medical Records Attestation: I reviewed the patient's medical records. Lab Data Attestation: I reviewed the patient's lab results. 03/20/25 19:11 03/20/25 19:11 Labs: Lab Results 03/20/25 03/20/25 Range/Units 19:11 20:13 WBC 6.5 (4.5-10.0) K/mm3 RBC 4.36 (4.2-5.4) M/mm3 Hgb 13.0 (12.0-15.0) g/dL Hct 38.3 (37.0-47.0) % MCV 87.8 (80-100) fl MCH 29.8 (26-34) pg MCHC 33.9 (32-36) g/dl RDW 13.4 (11.5-14.5) % Plt Count 130 L (150-375) k/mm3 MPV 10.1 (7.4-10.4) fl Immature Gran % (Auto) 0.3 (0-0.5) % Neut % (Auto) 51.4 (45.5-73.1) % Lymph % (Auto) 39.8 (18.3-44.2) % [place] % (Auto) 6.6 (2.6-8.5) % Eos % (Auto) 1.1 (0-4.4) % Baso % (Auto) 0.8 (0.2-1.2) % Lymph # (Auto) 2.60 (0.9-3.2) K/mm3 [place] # (Auto) 0.4 (0.1-0.6) K/mm3 Eos # (Auto) 0.1 (0-0.3) K/mm3 Baso # (Auto) 0.1 (0.0-0.1) K/mm3 Abs Immat Gran (auto) 0.02 (0.00-0.031) K/mm3 Absolute Neuts (auto) 3.4 (1.3-6.7) K/mm3 Absolute Nucleated RBC 0.000 (0.0-0.012) K/mm3 Nucleated RBC % 0.0 (0.0-0.2) % % Immature Plt Fraction 3.5 (0.9-11.2) % PT 14.8 H (11.1-14.7) Seconds INR 1.2 APTT 24.2 (22.3-36.8) Seconds Sodium 133 L (137-145) mmol/L Potassium 3.9 (3.4-5.0) mmol/L Chloride 101 (98-107) mmol/L Carbon Dioxide 23 (22-30) mmol/L Anion Gap 9 (4-12) mmol/L BUN 15 (7-17) mg/dL Creatinine 0.82 (0.7-1.0) mg/dL Estim Creat Clear Calc 90 ml/min Estimated GFR > 60 (59 - ) Glucose 386 H (65-110) mg/dL Calcium 8.9 (8.4-10.2) mg/dL Total Bilirubin 0.7 (0.2-1.3) mg/dL AST 45 H (14-36) U/L ALT 47 H (6-35) U/L Alkaline Phosphatase 134 H (38-126) U/L Total Protein 7.5 (6.3-8.2) g/dL Albumin 4.1 (3.5-5.1) g/dL Blood Type B Positive Antibody Screen Negative Imaging Data Attestation: I personally reviewed and interpreted this imaging study as follows: (I reviewed the radiologist's interpretations) Radiologist's impression: Impressions Abdomen/Pelvis CT 03/20/25 20:40 IMPRESSION: 1. No acute findings. 2. Additional findings as above. Discharge Plan Discharge Clinical Impression: Hyperglycemia GI (gastrointestinal bleed) Qualifiers: GI bleed type/associated pathology: unspecified gastrointestinal hemorrhage type Qualified Code(s): K92.2 - Gastrointestinal hemorrhage, unspecified Crohn's disease Qualifiers: Gastrointestinal tract location: unspecified location Digestive disease complication type: with rectal bleeding Qualified Code(s): K50.911 - Crohn's disease, unspecified, with rectal bleeding Patient Disposition: Home Condition: Stable Instructions: Antibiotic Form, Gastrointestinal Bleeding (ED), Crohn Disease (ED) Additional Instructions: Follow-up with GI in the next week. Have your colonoscopy scheduled for further evaluation. Return the ED for any new or worsening symptoms. Patient Language: Arabic Prescriptions: No Action naproxen 500 mg tablet 500 mg PO BID Qty: 60 0RF doxycycline hyclate 100 mg capsule 100 mg PO DAILY Qty: 10 0RF (DME) CPAP supplies See Rx Instructions .Route .MEDSUPPLY Qty: 1 0RF Rx Instructions: small ResMed AirFit in 30 I nasal mask with CPAP 12 cm and heated humidity escitalopram oxalate [Lexapro] 10 mg tablet 10 mg PO DAILY Qty: 90 2RF amoxicillin-pot clavulanate 875-125 mg tablet 1 tablet PO BID Qty: 20 1RF Rx Instructions: take 1 tablet b.i.d. fluconazole 150 mg tablet 150 mg PO ONCE Qty: 2 0RF Rx Instructions: Take 1 tablet once; may take another dose 3 days later if symptoms have not improved Follow-up/Referrals: Nico Marsh APRN [Primary Care Provider, Family Practice] Doc Dawson MD [Physician, Gastroenterology]
[2025-03-20 20:32] LABS: INR 1.2; Prothrombin Time 14.8 Seconds (11.1-14.7)
[2025-03-20 20:33] LABS: Partial Thromboplastin Time 24.2 Seconds (22.3-36.8)
== END 2025-03-20 21:12 | disposition home or self-care (01) ==
PROVIDERS: Family Medicine; Emergency Provider Student in an Organized Health Care Education/Training Program; PCP Student in an Organized Health Care Education/Training Program
DX: K50.911 Crohn's disease, unspecified, with rectal bleeding (principal); K64.8 Other hemorrhoids; G47.33 Obstructive sleep apnea (adult) (pediatric); F41.9 Anxiety disorder, unspecified; F32.A Depression, unspecified; F17.210 Nicotine dependence, cigarettes, uncomplicated; Z90.710 Acquired absence of both cervix and uterus; Z90.49 Acquired absence of other specified parts of digestive tract; Z79.899 Other long term (current) drug therapy; K74.60 Unspecified cirrhosis of liver; K76.0 Fatty (change of) liver, not elsewhere classified; K65.4 Sclerosing mesenteritis
CPT/HCPCS: 36415; 74177; 80053; 85025; 85055; 85610; 85730; 86850; 86900; 86901; 99284; Q9967

== ENCOUNTER 2025-04-03 09:19 | Outpatient (CLI) | payer OTHER, SELFPAY ==
--- OUTSIDE RECORDS SUMMARY | 2025-04-03 09:50 | XMS_ITS | Clinical Summary ---
Author Organization [facility] Address [address] [place] [address] Phone Care Team Providers Care Door To Door Selling Agent Name Role Phone Provider, None Primary Care [...] Comments Blood Pressure 125/71 07/11/2024 11:45 PM [employer] Pulse 71 07/12/2024 12:15 AM [employer] Temperature 36.8 C (98.3 F) 07/11/2024 9:01 PM [employer] Respiratory Rate 16 07/11/2024 9:01 PM [employer] Oxygen Saturation 96% 07/12/2024 12:15 AM [employer] Inhaled Oxygen Concentration - - Weight 113.4 kg (250 lb) 07/11/2024 9:01 PM [employer] SAL[employer] Height 165.1 cm (5' 5) 07/11/2024 9:01 PM [employer] SAL[employer]ANT Body Mass Index 41.6 07/11/2024 9:01 PM [employer]ANT Plan of Treatment Health Maintenance Due Date Last Done Comments Hepatitis C Virus (HCV) Screening 1975 TdaP Immunization 1975 Hepatitis B Immunization (1 of 3 - 19+ 3-dose series) 1994 Cologuard 2020 Colonoscopy 2020 Colorectal Cancer Screening 2020 Immunochemical Fecal Occult Blood 2020 Mammogram 08/10/2024 08/10/2023, 10/07/2016 Influenza Immunization (#1) 2025 1007/2019, 04/04/2019, 04/16/2011 SARS-COV-2 Immunization (1 - season) 2025 Pneumococcal Immunization (5 0+ years) (2 of 2 - PCV) 2025 12/10/2015 Zoster Immunization (1 of 2) 2025 Respiratory Syncytial Virus (RSV) Immunization (Adult) (1 - 1-dose 75+ series) 2050 Pneumococcal Immunization Combined Discontinued 12/10/2015 Discussion re Starting/Frequency of Mammograms Discontinued 08/10/2023, 10/07/2016 Human Papillomavirus (HPV) Immunization Aged Out No longer eligible based on patient's age to complete this topic Meningococcal Immunization (ACWY) Aged Out No longer eligible based on patient's age to complete this topic Rotavirus Immunization Aged Out No lo nger eligible based on patient's age to complete this topic Procedures Procedure Name Priority Date/Time Associated Diagnosis Comments [facility] SCREENING BILATERAL DIGITAL W CAD Routine 10/07/2016 [...] Comparison is made to exam dated: 10/20/[address] [facility]. BREAST TISSUE:There are scattered fibroglandular densities in [...] exam. Electronically signed by: Cecil Roca M.D. bs/penforeign:10/09/2016 08:58:07 Heading And Priming Operator: Chika MCNULTY)(Diana), [facility] letter sent: Normal Exam Reading location: [facility] BI-RADS: 1 Negative Procedure Note Cecil Roca MD - 10/09/2016 - [facility] SCREENING BILATERAL DIGITAL W CAD BILATERAL DIGITAL SCREENING MAMMOGRAM WITH CAD WITH MEDIOLATERAL OBLIQUE CRANIOCAUDAL: 10/07/2016 The study was acquired using digital technology and interpreted from soft copy. Current study was also evaluated with ICAD version 7.2. CLINICAL: Routine screening. Patient has no complaints. No personal history of cancer. Mother had breast cancer. COMPARISONS: Comparison is made to exam dated: 10/20/[address] [facility]. BREAST TISSUE:There are scattered fibroglandular densities in [...] exam. Electronically signed by: Cecil flores/kirsten:10/09/2016 08:58:07 Heading And Priming Operator: Chika MCNULTY)(M), [facility] letter sent: Normal Exam Reading location: [facility] BI-RADS: 1 Negative us Jes Buitrago MD IMG MAMMO ORDERABLES Final Resu lt from Last 3 Months or Most Recently Relevant to Health Maintenance Insurance MEDICAID [place] Care Teams Door To Door Selling Agent Relationship Specialty Start Date End Date Provider, None [place] PCP - General 09/10/19
--- OUTSIDE RECORDS SUMMARY | 2025-04-03 09:50 | XMS_ITS | Clinical Summary ---
Author Organization [facility] Address [address] [place] [address] Care Team Providers Care Joint Maker Machine Name Role Phone No, Physician Primary Care Provider Allergies No known active allergies Medications methocarbamoL (ROBAXIN) 500 mg tablet Take 1 tablet (500 mg total) by mouth 3 (three) times a day as needed for muscle spasms 20 tablet 1 Active Additional Information Patient not taking.Reported on 05/12/2024 medroxyPROGESTE Mikhail (Provera) 10 mg tablet Take 2 tablets (20 mg total) by mouth daily 30 tablet 2 2 Active Additional Information Patient not taking.Reported on 05/12/2024 HYDROcodone-gaurang taminophen (NORCO) 5-325 mg per tabletIndicatio ns:Pain Take 1-2 tablets by mouth every 6 (six) hours as needed for pain 6 tablet 3 Active Additional Information Patient not taking.Reported on 05/12/2024 ibuprofen (ADVIL,MOTRIN) 800 mg tablet Take 1 tablet (800 mg total) by mouth 3 (three) times a day 21 tablet 3 Active Additional Information Patient not taking.Reported on 05/12/2024 chlorhexidine (PERIDEX) 0.12 % solution Apply 15 mL to the mouth or throat 2 (two) times a day 120 mL 3 Active Additional Information Patient not taking.Reported on 05/12/2024 escitalopram (LEXAPRO) 10 mg tablet Take 1 tablet (10 mg total) by mouth daily 4 Active valACYclovir (VALTREX) 500 mg tablet Take 2 tablets (1,000 mg total) by mouth daily 60 tablet 11 4 Active Active Problems Problem Noted Date Diagnosed Date Endometrial adenocarcinoma 06/09/2022 S/P SCARLET-BSO 06/09/2022 Endometrial hyperplasia 05/12/2022 Class 3 severe obesity without serious comorbidi ty in adult 03/02/2022 Social anxiety disorder 12/27/2020 Herpes simplex vulvovaginitis 12/27/2020 Dental caries 02/05/2020 Gastrocnemius strain, left, initial encounter Gross hematuria 03/20/2016 Obesity with body mass index 30 or greater 12/09 Current smoker 07/31/2010 Crohn's disease of both small and large intestin e 02/22/2007 Resolved Problems Problem Noted Date Diagnosed Date Resolved Date Acute infective otitis externa of left ear 02/05/2020 12/27/2020 Dentalgia 02/05/2020 12/27/2020 Infestation by Sarcoptes scabiei 11/26/2010 12/27/2020 Encounters Date Type Department Care Team Description 01/08/2025 Telephone [facility] [address] [place] [phone] Candis Corona, Abnormal Uterine Bleeding from Last 3 Months Immunizations Immunization Administration Dates Next Due Influenza, Trivalent, Preservative Free, Intramu scular 04/16/2011 Influenza, Unspecified 04/04/2020,04/04/2019 Pneumococcal Polysaccharide PPV23 12/10/2015,01/2016 Surgical History Surgery Date Site/Laterality Comments OTHER SURGICAL HISTORY ileocolic recsection BACK SURGERY back surgery SALPINGECTOMY 07/05/2014 - 07/04/2015 Left LEFT OOPHORECTOMY Left Medical History Medical History Date Comments Depression Depression Hx Other Medical back pain; Comm ents: ODESSA 12/19/2015 - Crohn's disease (HCC) Crohn's di sease Herpes Social anxiety disorder 12/27/2020 Social anxiety disorder 12/27/2020 Dental caries 02/05/2020 Herpes simplex vulvovaginitis 12/27/2020 Family History Medical History Relation Name Comments Cancer Other Family history of cancer; Relation Name Status Comments Other Social History Tobacco Use Types Packs/Day Years Used Date Smoking Tobacco: Every Day Cigarettes 1 32.7 Started: 1992 Smokeless Tobacco: Never Tobacco Cessation:Ready to Q uit: Not Asked; Counseling Given: Not Answered Alcohol Use Standard Drinks/Week Comments Yes 0 (1 standard drink = 0.6 oz pur e alcohol) Social Connection and Isolation Panel Answer Date Recorded In a typical week, how many times do you talk on the phone with family, friends, or neighbors? More than three times a week 12/27/2020 How often do you get togethe r with friends or relatives? Once a week 12/27/2020 How often do you attend chur ch or oriental orthodox services? Never 12/27/2020 Do you belong to any clubs o r organizations such as hinduism groups, unions, fraternal or athletic groups, or school groups? No 12/27/2020 How often do you attend meet ings of the clubs or organizations you belong to? Never 12/27/2020 Are you , , di vorced, , never , or living with a partner? Never 12/27/2020 AUDIT-C Answer Date Recorded Q1: How often do you have a drink containing alc ohol? Monthly or less 12/27/2020 Q2: How many drinks containi ng alcohol do you have on a typical day when you are drinking? 3 or 4 12/27/2020 Q3: How often do you have si x or more drinks on one occasion? Less than monthly 12/27/2020 Overall Financial Resource Strain (CARDIA) Answe r Date Recorded How hard is it for you to pa y for the very basics like food, housing, medical care, and heating? Not very hard 12/27/2020 PHQ-2 Answer Date Recorded PHQ-2 Total Score (If total score is 3 or more points, staff should administer the PHQ-9) 0 12/27/2020 [facility] - Occupational Stress Questionnaire Answer Date Recorded Do you feel stress - tense, restless, nervous, or anxious, or unable to sleep at night because your mind is troubled all the time - these days? To some extent 12/27/2020 Exercise Vital Sign Answer Date Recorde d On average, how many days pe r week do you engage in moderate to strenuous exercise (like a brisk walk)? 0 days Minutes of Exercise per Session Not on file 12/27/2020 Hunger Vital Sign Answer Date Recorded Within the past 12 months, y ou worried that your food would run out before you got the money to buy more. Never true 12/28/19 21 Within the past 12 months, t he food you bought just didn't last and you didn't have money to get more. Never true 12/27/2020 PRAPARE - Transportation Answer Date Re corded In the past 12 months, has l ack of transportation kept you from medical appointments or from getting medications? Yes 12/04 In the past 12 months, has l ack of transportation kept you from meetings, work, or from getting things needed for daily living? Yes 12/27/2020 Housing Stability Vital Sign Answer Mk e Recorded In the last 12 months, was t here a time when you were not able to pay the mortgage or rent on time? No 12/27/2020 In the last 12 months, how many places have you lived? 1 12/27/2020 In the last 12 months, was t here a time when you did not have a steady place to sleep or slept in a fpc (including now)? No 12/27/2020 Personal Safety Answer Date Recorded Have you ever been in or are you currently in a harmful physical or emotional relationship or is someone making you feel afraid or unsafe? Denies 07/24/2023 Education Answer Date Recorded What is the highest level of school you have completed or the highest degree you have received? 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 Not on file Not on file Not on file Obstetrics History Para Term AB IAB SAB Ectopic Multiple Livin g Live Births 2 2 1 1 0 0 Date Outcome GA Total Labor Labor//3rd Weight Sex Type Anes PTL Mildred A1 A5 Name Clin 1995 0.51 kg (1 lb 2 oz) M Vag-Sp ont 2002 Term 3.118 kg (6 lb 14 oz) M Vag-Sp ont Last Filed Vital Signs Vital Sign Reading Time Taken Comments Blood Pressure 128/88 05/12/2024 3:15 PM LABORATORY ANIMAL FACILITY SUPERVISOR Pulse 83 07/24/2023 10:21 PM LABORATORY ANIMAL FACILITY SUPERVISOR Temperature 36.8 C (98.2 F) 07/24/2023 10:21 PM LABORATORY ANIMAL FACILITY SUPERVISOR Respiratory Rate 16 07/24/2023 10:21 PM LABORATORY ANIMAL FACILITY SUPERVISOR Oxygen Saturation 99% 07/24/2023 10:21 PM LABORATORY ANIMAL FACILITY SUPERVISOR Inhaled Oxygen Concentration - - Weight 117.5 kg (259 lb) 05/12/2024 3:15 PM LABORATORY ANIMAL FACILITY SUPERVISOR Height 165.1 cm (5' 5) 08/10/2023 2:07 PM LABORATORY ANIMAL FACILITY SUPERVISOR Body Mass Index 43.1 08/10/2023 2:07 PM LABORATORY ANIMAL FACILITY SUPERVISOR Plan of Treatment Health Maintenance Due Date Last Done Comments Colon Cancer Screening-Colonoscopy 1975 Hepatitis C Screening 1975 DTaP/Tdap/Td Vaccine (1 - Tdap) 1986 Hepatitis B Screening 1993 Pneumococcal vaccine <65 (2 of 2 - PCV) 12/09/2016 12/10/2015, 12/10/2015 Depression Screening 12/27/2021 12/27/2020 Breast Cancer Screening-Mammogram 08/10/2024 08/10/2023, 10/07/2016, 10/07/2016 Regular Well Visit/Exam 18-64 08/10/2024, 02/26/2022, 12/27/2020 Influenza Vaccine (#1) 2025 , 04/04/2019, 04/16/2011 Lung Cancer Screening 2025 Zoster Vaccine (1 of 2) 2025 Cervical Cancer Screening Discontinued 02/26/2022 Procedures Procedure Name Priority Date/Time Associated Diagnosis Comments DIAGNOSTIC MAMMOGRAM BILATERAL W RONAL Schedule Routine, Read Routine (OP Routine) 08/10/2023 3:03 PM LABORATORY ANIMAL FACILITY SUPERVISOR Screening mammogram, encounter for PAP AND HIGH RISK HPV, REFLEX TO GENOTYPING Routine 02/26/2022 12:06 PM CDT Screening for malignant neoplasm of the cervix Screening examination for venereal disease History of abnormal cervical Papanicolaou smear from Last 3 Months or Most Recently Relevant to Health Maintenance Results * Diagnostic Mammogram Bilateral W Ronal (08/10/2023 3:03 PM LABORATORY ANIMAL FACILITY SUPERVISOR) Anatomical Region Laterality Modality Breast Bilateral Mammography Addenda Addendum by Be Vazquez MD on 09/06/2023 3:35 PM LABORATORY ANIMAL FACILITY SUPERVISOR Comparison study dated 10/07/2016 has become available. There are benign calcifications of the breasts again noted. No new calcification or new density seen to suggest malignant process. Impression: BI-RADS category 2. Benign. Annual mammogram screening suggested. Narrative 08/10/2023 4:05 PM LABORATORY ANIMAL FACILITY SUPERVISOR Bilateral BREAST DIGITAL MAMMOGRAM, diagnostic with tomography The present examination has no comparison imaging. If comparison studies become available, the current study will be reviewed. MAMMOGRAM FINDINGS CAD (computer aided detection) software was utilized. The breasts are heterogeneously dense. 2D and 3D imaging was performed in the cc, MLO, and true lateral planes. Cleavage views were also obtained. Marker has been placed in the right upper outer breast in area of interest. No obvious mass or architectural distortion is seen deep to the marker. There are few benign calcifications of the bilateral breasts. IMPRESSION No mass or suspicious calcifications identified to suggest malignant process. In absence of new clinical findings, patient to return in 1 year for continuation of her annual mammogram screening. BI-RADS CATEGORY 1. Negative. Annual mammogram screening suggested. Right Breast Ultrasound Report to Follow PATIENT LETTER SENT Lucina Brandon MD IMG MAMMO PROCEDURES Edited Result - Final * Pap and High Risk HPV, reflex to Genotyping (02/26/2022 12:06 PM CDT) Thin prep (Pap test) 02/26/2022 12:06 PM CDT 02/26/2022 12:06 PM CDT Narrative PATHOLOGY CH - 03/03/2022 4:38 PM CDT [facility] Department of Pathology [address] [place] [id number] Final Report with Addendum Note to Patients: This report may contain a detailed description of human tissue sent by a health care provider to the laboratory for pathologic evaluation. The content of this report is essential for diagnosis and may provide important critical findings. This information may be unfamiliar to patients to review without a medical professional present. It is advised that the patient review this report in the presence of a health care provider who can answer questions and explain the details. Patient Name: JOHN MCLEAN Address: [address] [place] [address] Gender: F : 1975 (Age: 46) Service: Laboratory Location: Lab [facility] #: [id number] Patient Type: [facility] Lab Taken: 02/26/2022 Received: 02/26/2022 Accessioned:: 02/27/2022 Reported: 03/03/2022 Physician(s): Iza Ingram D.O. Diagnosis: Source of Specimen: SCREENING THIN PREP IMAGED PAP w/ HPV Specimen Adequacy: - Satisfactory for evaluation; endocervical/transformation zone component present General Category: - Negative for intraepithelial lesion or malignancy Interpretation/Results: - Numerous inflammatory cells present - Trichomonas vaginalis present RAJIV Damon(ASCP)Kiko Rothman M.D. Report Electronically Reviewed and Signed Out By Kiko Rothman M.D. 03/03/2022 16:38:06Addenda: HPV Test Interpretation NEGATIVE for types 16, 18, 31, 33, 35, 39, 45, 51, 52, 56, 58, 59, 66 and 68. Test performed utilizing Gen-Probe Aptima assay. RAJIV Damon(ASCP)Report Electronically Reviewed and Signed Out By MICHELLE DamonASCP) 03/02/2022 12:07:05 Specimen(s) Received: A: SCREENING THIN PREP IMAGED PAP w/ HPV Clinical History: Last Menstrual Period: 02/16/22 Menstrual History: Previous Abnormal Pap The Pap test is a screening test used to aid in the detection of cervical cancer and its precursors. It should not be the sole means by which malignant and premalignant lesions are diagnosed. Both false negative and false positive results may occur. It also has poor sensitivity for the detection of endometrial lesions and should not be used to evaluate suspected endometrial abnormalities. For these reasons it is most important to obtain Pap tests at regular intervals. The performance characteristics of some immunohistochemical stains, fluorescence in-situ hybridization tests and immunophenotyping by flow cytometry cited in this report (if any) were determined by the Surgical Pathology Department at [facility] as part of an ongoing corporate quality assurance manager program and in compliance with federally mandated regulations drawn from the Clinical Laboratory Improvement Act of 1988 (CLIA '88). Some of these tests rely on the use of analyte specific reagents and are subject to specific labeling requirements by the US Food and Drug Administration. Such diagnostic tests may only be performed in a facility that is certified by the Department of Health and Human Services as a high complexity laboratory under CLIA '88. The FDA has determined that such clearance or approval is not necessary. This test is used for clinical purposes. It should not be regarded as investigational or for research. Nevertheless, federal rules concerning the medical use of analyte specific reagents require that the following disclaimer be attached to the report: This test was developed and its performance characteristics determined by the Surgical Pathology Department [facility]. It has not been cleared or approved by the U. S. Food and Drug Administration. Candis Corona DO LAB CYTOLOGY ORDERABLES Final Result PATHOLOGY [address] [place] [address] from Last 3 Months or Most Recently Relevant to Health Maintenance Insurance [facility] Care Teams Joint Maker Machine Relationship Specialty Start Date End Date No, Physician PCP - General 01/02/22
[2025-04-03 13:05] LABS: Hemoglobin A1C 11.0 % (<5.7)
[2025-04-03 13:21] LABS: Iron 71 ug/dL (37-170)
[2025-04-03 13:23] LABS: Alanine Aminotransferase 51 U/L (6-35); Albumin Level 3.8 g/dL (3.5-5.1); Alkaline Phosphatase 136 U/L (38-126); Anion Gap 7 mmol/L (4-12); Aspartate Amino Transferase 53 U/L (14-36); Bilirubin,Total 0.8 mg/dL (0.2-1.3); Blood Urea Nitrogen 11 mg/dL (7-17); Calcium 8.6 mg/dL (8.4-10.2); Carbon Dioxide 23 mmol/L (22-30); Chloride 105 mmol/L (98-107); Cholesterol 133 mg/dL (0-200); Estimated Glomerular Filt Rate > 60; Glucose 300 mg/dL (65-110); HDL Direct 41 mg/dL; Potassium 3.8 mmol/L (3.4-5.0); Sodium 135 mmol/L (137-145); Total Protein 7.1 g/dL (6.3-8.2); Triglycerides 128 mg/dL (<150)
[2025-04-03 13:54] LABS: Percent Iron Saturation 20 % (20-50); Thyroid Stimulating Hormone 1.360 uIU/mL (0.465-4.680)
[2025-04-03 14:07] LABS: Ferritin 144.00 ng/mL (11.1-264)
== END 2025-04-03 09:20 | disposition home or self-care (01) ==
LOC: ANHGOSHLAB 09:20
PROVIDERS: PCP Student in an Organized Health Care Education/Training Program; Visit Provider Student in an Organized Health Care Education/Training Program
DX: Z13.220 Encounter for screening for lipoid disorders (principal); K50.10 Crohn's disease of large intestine without complications; R73.9 Hyperglycemia, unspecified; K74.60 Unspecified cirrhosis of liver
CPT/HCPCS: 36415; 80053; 80061; 82728; 83036; 83540; 83550; 84443

== ENCOUNTER 2025-04-19 00:26 | Day surgery (SDC) | payer OTHER, SELFPAY ==
[2025-04-10 15:39] VITALS: BMI 42.2
--- OUTSIDE RECORDS SUMMARY | 2025-04-19 00:28 | XMS_ITS | Clinical Summary ---
Author Organization [facility] Address [address] [place] [address] Phone Care Team Providers Care Procurement Clerk Name Role Phone Provider, None Primary Care [...] Comments Blood Pressure 125/71 07/11/2024 11:45 PM FENCE MAKING MACHINE OPERATOR Pulse 71 07/12/2024 12:15 AM FENCE MAKING MACHINE OPERATOR Temperature 36.8 C (98.3 F) 07/11/2024 9:01 PM FENCE MAKING MACHINE OPERATOR Respiratory Rate 16 07/11/2024 9:01 PM FENCE MAKING MACHINE OPERATOR Oxygen Saturation 96% 07/12/2024 12:15 AM FENCE MAKING MACHINE OPERATOR Inhaled Oxygen Concentration - - Weight 113.4 kg (250 lb) 07/11/2024 9:01 PM FENCE MAKING MACHINE OPERATOR Height 165.1 cm (5' 5) 07/11/2024 9:01 PM FENCE MAKING MACHINE OPERATOR Body Mass Index 41.6 07/11/2024 9:01 PM FENCE MAKING MACHINE OPERATOR Plan of Treatment Health Maintenance Due Date [...] Procedure Name Priority Date/Time Associated Diagnosis Comments [facility] SCREENING BILATERAL DIGITAL W CAD Routine [...] Comparison is made to exam dated: 10/20/2006 [facility]. BREAST TISSUE:There are scattered fibroglandular densities in [...] signed by: Cecil Roca M.D. bs/penforeign:10/09/2016 08:58:07 Infusion Rn: Chika MCNULTY)(Diana), [facility] letter sent: Normal Exam Reading location: [facility] BI-RADS: 1 Negative Procedure Note Cecil Roca MD - 10/09/2016 - [facility] SCREENING BILATERAL DIGITAL W CAD BILATERAL DIGITAL SCREENING MAMMOGRAM WITH CAD WITH MEDIOLATERAL OBLIQUE CRANIOCAUDAL: 10/07/2016 The study was acquired using digital technology and interpreted from soft copy. Current study was also evaluated with ICAD version 7.2. CLINICAL: Routine screening. Patient has no complaints. No personal history of cancer. Mother had breast cancer. COMPARISONS: Comparison is made to exam dated: 10/20/2006 [facility]. BREAST TISSUE:There are scattered fibroglandular densities in [...] exam. Electronically signed by: Cecil flores/kirsten:10/09/2016 08:58:07 Infusion Rn: Chika MCNULTY)(M), [facility] letter sent: Normal Exam Reading location: [facility] BI-RADS: 1 Negative us Jes Buitrago MD IMG MAMMO ORDERABLES Final Resu lt from Last 3 Months or Most Recently Relevant to Health Maintenance Insurance MEDICAID [place] Care Teams Procurement Clerk Relationship Specialty Start Date End Date Provider, None [place] PCP - General 09/10/19
--- OUTSIDE RECORDS SUMMARY | 2025-04-19 00:28 | XMS_ITS | Clinical Summary ---
Author Organization [facility] [employer] Address [address] [place] [address] Care Team Providers Care Personnel Records Clerk Name Role Phone Unavailable Primary Care Provider Unavailabl e Source Comments [facility] [employer],non-owned Affiliates and Associated Physician Practices is amultiple site organization consisting of ambulatory clinics and hospital sitesin [place], [place], [place] and [place]. This disclosure is being madepursuant to the Care Everywhere program and may not contain all information available regarding this patient. Last updated 18.[employer] Allergies No known active allergies Medications * [...] Patient not taking.Reported on 08/06/2022 HYDROcodone-ac etaminophen (Goldsmith) 5-325 MG tablet Take 1 (one) tablet [...] Date Smoking Tobacco: Every Day Cigarettes 1 32.8 Started: 1992 Smokeless Tobacco: Never Tobacco Cessation:Ready to Q uit: Not Asked; Counseling Given: Not Answered Alcohol Use Standard Drinks/Week Comments Not Currently 0 (1 standard drink = 0.6 oz pur e alcohol) rare Comments No Sex and Gender Information Value Date Recorded Sex Assigned at Not on file Legal Sex Female 6:16 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 Gender Identity Not on file Sexual Orientation Not on file Last Filed Vital Signs Vital Sign Reading Time Taken Comments Blood Pressure 126/78 08/06/2022 10:32 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 Pulse 79 07/27/2022 9:10 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 Temperature 37.1 C (98.8 F) 07/27/2022 7:43 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 Respiratory Rate 16 07/27/2022 9:20 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 Oxygen Saturation 95% 07/27/2022 9:20 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 Inhaled Oxygen Concentration - - Weight 105.7 kg (233 lb) 08/06/2022 10:32 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 Height 165.1 cm (5' 5) 08/06/2022 10:32 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 Body Mass Index 38.77 08/06/2022 10:32 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 Plan of Treatment Health Maintenance Due Date [...] this topic Medical Devices Implanted Type Area Ash Handler Device Identifier Shelf Expiration Date Model / Serial / Lot Mesh Srg Phasix 8x6in Rect Mfl Scfld Implanted:Qty: 1 on 05/12/2022 by Edle Dia MD at [facility] [employer] [id number] / / [id number] Description:JJ Procedures Procedure Name Priority Date/Time Associated Diagnosis Comments RENAL FUNCTION PANEL AM Draw 05/14/2022 6:56 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 from Last 3 Months or Most Recently Relevant to Health Maintenance Results * (ABNORMAL) RENAL FUNCTION PANEL (05/14/2022 6:56 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) [facility] Glucose 99 70 - 105 mg/dL 05/14/2022 8:01 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 [facility] Sodium 141 136 - 145 mmol/L 05/14/2022 8:01 AM [facility] Potassium 3.7 3.5 - 5.1 mmol/L 05/14/2022 8:01 AM [facility] Chloride 107 98 - 107 mmol/L 05/14/2022 8:01 AM [facility] CO2 21(L) 23 - 31 mmol/L 05/14/2022 8:01 AM [facility] Calcium 8.7 8.4 - 10.4 mg/dL 05/14/2022 8:01 AM [facility] Anion Gap 13 8 - 18 mmol/L 05/14/2022 8:01 AM [facility] BUN 11 7 - 18.7 mg/dL 05/14/2022 8:01 AM [facility] Creatinine 0.80 0.57 - 1.11 mg/dL 05/14/2022 8:01 AM [facility] Albumin 3.4(L) 3.5 - 5.2 gm/dL 05/14/2022 8:01 AM [facility] Phosphorus 2.6 2.3 - 4.7 mg/dL 05/14/2022 8:01 AM [facility] eGFR by CKD-EPI >90 >=90 mL/min/1.7 3 m2 05/14/2022 8:01 AM [facility] Blood BLOOD SPECIMEN / Unknown Lab Venipuncture / Unknown 05/14/2022 6:56 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 05/14/2022 7:37 AM [facility] Sai Little MD LAB - CHEMISTRY ORDERABLES Final Result Performing Organization Address City/State/[facility] Co de Phone Number [facility] [address] [place] [address] from Last 3 Months or Most Recently Relevant to Health Maintenance [place] [address] [place] [address] [facility] * Guarantor: ROMA MCLEAN Account Type Relation to Patient Date of Phone Billing Address Personal/Family [address] [place] [address] [facility] SELF PAY NO INSURANCE Member Subscriber Plan / Payer (Ef fective for All Dates) Name:Roma Mclean Member ID:Not on file Relation to Subscriber:Not on file Name:ROMA MCLEAN Subscriber ID:Not on file Address: [address] [place] [address] Payer ID:Not on file Group ID:Not on file Type:Self Pay Address: [place], [place] * Guarantor: ROMA MCLEAN Account Type Relation to Patient Date of Phone Billing Address Personal/Family [address] [place] [address] [facility] SELF PAY NO INSURANCE Member Subscriber Plan / Payer (Ef fective for All Dates) Name:Roma Mclean Member ID:Not on file Relation to Subscriber:Not on file Name:ROMA MCLEAN Subscriber ID:Not on file Address: [address] [place] [address] Payer ID:Not on file Group ID:Not on file Type:Self Pay Address: [place], [place] * Guarantor: ROMA MCLEAN Type Relation to Patient Date of Phone Billing Address Personal/Family [address] [place] [address] [facility] SELF PAY NO INSURANCE Member Subscriber Plan / Payer (Ef fective for All Dates) Name:Roma Mclean Member ID:Not on file Relation to Subscriber:Not on file Name:ROMA MCLEAN Subscriber ID:Not on file Address: [address] [place] [address] Payer ID:Not on file Group ID:Not on file Type:Self Pay Address: [place], [place]
--- OUTSIDE RECORDS SUMMARY | 2025-04-19 00:28 | XMS_ITS ---
Author Organization [facility] Address [address] [place] [address] Care Team Providers Care Outside Sales Account Executive Name Role Phone Unavailable Primary Care Provider [...]
--- OUTSIDE RECORDS SUMMARY | 2025-04-19 00:28 | XMS_ITS | Clinical Summary ---
Author Organization [facility] Address [address] [place] [address] Care Team Providers Care Optical Goods Drill Operator Name Role Phone No, Physician Primary Care Provider [phone] Allergies No known active allergies Medications methocarbamoL [...] 12/27/2020 Infestation by Sarcoptes scabiei 11/26/2010 12/27/2020 Immunizations Immunization Administration Dates Next Due Influenza, [...] 12/27/2020 How often do you attend chur or advent services? Never 12/27/2020 Do you belong to any clubs o r organizations such as jew groups, unions, fraternal or athletic groups, or [...] staff should administer the PHQ-9) 0 12/27/2020 [facility] - Occupational Stress [...] money to buy more. Never true 12/28/19 Within the past 12 months, t he [...] place to sleep or slept in a long-term (including now)? 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 on file Not on file Not on file Obstetrics History Para Term AB IAB SAB Ectopic Multiple Livin g Live Births 2 2 1 1 0 0 Date Outcome GA Total Labor Labor/2nd/3rd Weight Sex Type Anes PTL Mildred A1 A5 Name Clin 1995 0.51 kg (1 lb 2 oz) M Vag-Sp ont 2002 Term 3.118 kg (6 lb 14 oz) M Vag-Sp ont Last Filed Vital Signs Vital Sign Reading Time Taken Comments Blood Pressure 128/88 05/12/2024 3:15 PM TRIBAL DELEGATE Pulse 83 07/24/2023 10:21 PM TRIBAL DELEGATE Temperature 36.8 C (98.2 F) 07/24/2023 10:21 PM TRIBAL DELEGATE Respiratory Rate 16 07/24/2023 10:21 PM TRIBAL DELEGATE Oxygen Saturation 99% 07/24/2023 10:21 PM TRIBAL DELEGATE Inhaled Oxygen Concentration - - Weight 117.5 kg (259 lb) 05/12/2024 3:15 PM TRIBAL DELEGATE Height 165.1 cm (5' 5) 08/10/2023 2:07 PM TRIBAL DELEGATE Body Mass Index 43.1 08/10/2023 2:07 PM TRIBAL DELEGATE Plan of Treatment Health Maintenance Due Date [...] Read Routine (OP Routine) 08/10/2023 3:03 PM TRIBAL DELEGATE Screening mammogram, encounter for PAP AND HIGH RISK HPV, REFLEX TO GENOTYPING Routine 02/26/2022 12:06 PM CDT Screening for malignant neoplasm of the cervix Screening examination for venereal disease History of abnormal cervical Papanicolaou smear from Last 3 Months or Most Recently Relevant to Health Maintenance Results * Diagnostic Mammogram Bilateral W Ronal (08/10/2023 3:03 PM TRIBAL DELEGATE) Anatomical Region Laterality Modality Breast Bilateral Mammography Addenda Addendum by Be Vazquez MD on 09/06/2023 3:35 PM TRIBAL DELEGATE Comparison study dated 10/07/2016 has become available. There are benign calcifications of the breasts again noted. No new calcification or new density seen to suggest malignant process. Impression: BI-RADS category 2. Benign. Annual mammogram screening suggested. Narrative 08/10/2023 4:05 PM TRIBAL DELEGATE Bilateral BREAST DIGITAL MAMMOGRAM, diagnostic with tomography [...] Ultrasound Report to Follow PATIENT LETTER SENT us Lucina Brandon MD IMG MAMMO PROCEDURES Edited Result - Final * Pap and High Risk HPV, reflex to Genotyping (02/26/2022 12:06 PM CDT) Thin prep (Pap test) 02/26/2022 12:06 PM CDT 02/26/2022 12:06 PM CDT Narrative PATHOLOGY CH - 03/03/2022 4:38 PM CDT [facility] Department of [facility]ology [address] [place] [id number] Final Report with Addendum Note to [...] the details. Patient Name: JOHN MCLEAN Address: [address] [place] [address] Gender: F : 1975 (Age: 46) Service: Laboratory Location: Lab [facility] #: [id number] Patient Type: Ref Lab Taken: 02/26/2022 Received: 02/26/2022 Accessioned:: 02/27/2022 [...] determined by the Surgical Pathology Department at [facility] as part of an ongoing air quality instrument specialist program and in compliance with federally mandated [...] characteristics determined by the Surgical Pathology Department [facility]. It has not been cleared or approved by the U. S. Food and Drug Administration. Candis Corona DO LAB CYTOLOGY ORDERABLES Final Result Performing Organization Address City/State/[facility] Co de Phone Number PATHOLOGY [address] [place] [address] from Last 3 Months or Most Recently Relevant to Health Maintenance Insurance [facility] Member Subscriber Plan / Payer (Ef fective 2015-Present) Name:John Mclean Relation to Subscriber:Self Name:John Mclean Payer ID:[id number] (NAIC) Type:MEDICAID RISK OTHER Address: [place] [id number] Care Teams Optical Goods Drill Operator Relationship Specialty Start Date End Date No, Physician PCP - General 01/02/22
[2025-04-19 06:31] VITALS: BP 109/69; PULSE 81; RESP 16; TEMP 35.6; O2SAT 98; BMI 41.8
[2025-04-19] MEDS: LACTATED RINGERS 1,000 ML 150 ML IV CONT (07:03)
--- NOTE | 2025-04-19 07:13 | P.PNAN_ITS ---
Anes - Initial Pre Proc Eval Procedure: Operation Date: 04/19/25 07:30 Proposed Procedures p EGD & Diagnostic Colonoscopy - Doc Dawson MD Date/Time: 04/19/25 07:13 Surgeon: Doc Dawson MD Pre Op Diagnosis: Crohn's disease of large intestine without complic Patient Data Age: 50 Gender: F Height: 1.65 m Weight: 114.1 kg Last Vital Signs Temp 96.0 F L 04/19/25 06:31 Pulse 81 04/19/25 06:31 Resp 16 04/19/25 06:31 BP 109/69 04/19/25 06:31 Pulse Ox 98 04/19/25 06:31 O2 Del Method Room Air 04/19/25 06:31 Allergies Allergy/AdvReac Type Severity Reaction Status Date / Time No Known Allergies Allergy Verified 04/19/25 06:30 Home Medications ?Medication ?Instructions ?Recorded ?Confirmed ?Type CPAP supplies #1 ea 12/27/23 04/19/25 Rx escitalopram oxalate 10 mg tablet 10 mg PO DAILY #90 t abs 12/18/24 04/19/25 Rx (Lexapro) tirzepatide 2.5 mg/0.5 mL 2.5 mg (0.5 mL) subcut WEEKL Y #2 mL 04/03/25 04/19/25 Rx subcutaneous pen injector (Chengunlucretiaro) ondansetron 4 mg disintegrating 4 mg PO Q6H PRN nausea and 04/10/25 04/12/25 Rx tablet vomiting #4 tabs potassium 99 mg tablet 99 mg PO DAILY 04/10/2504/04 History blood sugar diagnostic (Blood #100 ea 04/12/25 5 Rx Glucose Test strips) blood-glucose meter (Blood Glucose #1 ea 04/12/2504/04 Rx Monitoring kit) metformin 500 mg tablet,extended 500 mg PO DAILY #90 t abs 04/12/25 04/19/25 Rx release 24 hr (Glucophage XR) Laboratory Tests 04/19/25 06:37 POC Capillary Glucose 148 H mg/dl (65-105) Patient hx anesthesia problems: none Family hx anesthesia problems: none Results Review: All pre-operative results and documents have been reviewed as part of the pre- operative evaluation. [facility] Past Medical History Medical History Depression Lower leg pain Nerve pain DONNY (obstructive sleep apnea) Acute Crohn's disease Sebaceous cyst Crohn's colitis Cancer Anxiety Surgical History Surgical History H/O hernia repair 05/2022 H/O: hysterectomy 05/2022 Family History Family History Mother Breast cancer Bladder cancer Grandparent Lung cancer Social History Social History (Updated 04/12/25 @ 08:07 by Gilma Smiley MA) Smoking packs per day: 1 Smoking cigarettes per day: 20.0 Years smoked: 25 Smoking pack-years: 25.00 Smoking status: Former smoker Tobacco type: cigarettes and e-cigarettes/vaping Additional smoking assessment comments: Currently vapes Alcohol intake: never Substance use: current Substance use type: marijuana Other substance usage details: Daily Do You Feel Safe in your Home?: Yes Current Housing: Decline to Answer Concerned About Future Housing: Decline to Answer Difficulty Paying Gas/Electric Bills: Decline to Answer Difficulty Paying for Meds: Decline to Answer Education: Decline to Answer Difficulty w/ Childcare or Family Care: Decline to Answer Living arrangements: with family Spiritual care concerns: No Anes - Eval Final PreProcedure Day of Procedure 04/19/25 07:13 Patient weight: morbidly obese Heart: regular rate and rhythm Lungs: clear to auscultation Airway: Mallampati scale class II Neurological: alert and oriented Last oral intake: >/= 8 hours ASA classification: III Emergent: no Anesthetic plan: proceed Anesthesia type and monitoring: general GIVS and standard monitoring Results Review: All pre-operative results and documents have been reviewed as part of the pre- operative evaluation. Informed Consent: The patient's anesthetic plan and its attendant risks and benefits were discussed with the patient/family/POA. Questions were solicited and answers provided to the satisfaction of the patient/family/POA.
--- NOTE | 2025-04-19 07:30 | PM.IMHP ---
H&P: HPI History of Present Illness Date/Time: 04/19/25 07:30 Chief Complaint: History of Crohn's lqgykoz-razmxndz-wzei-positive stools Narrative: The patient had a right hemicolectomy more than 20 years ago for Crohn disease. She is currently not experiencing any symptoms related to the disease although she describes having chronic diarrhea since the operation. There is no overt bloody stools but occult blood has been detected. She also has recent diagnosis of diabetes, currently on Mountjaro and metformin. Denies dysphagia or heartburn. She is currently referred for EGD and colonoscopy Review of Systems Review of Systems: All systems reviewed & are unremarkable except as noted in HPI and below PMFSH Past Medical History Medical History Depression Lower leg pain Nerve pain DONNY (obstructive sleep apnea) Acute Crohn's disease Sebaceous cyst Crohn's colitis Cancer Anxiety Surgical History Surgical History H/O hernia repair 05/2022 H/O: hysterectomy 05/2022 Family History Family History Mother Breast cancer Bladder cancer Grandparent Lung cancer Social History Social History (Updated 04/12/25 @ 08:07 by Gilma Smiley MA) Smoking packs per day: 1 Smoking cigarettes per day: 20.0 Years smoked: 25 Smoking pack-years: 25.00 Smoking status: Former smoker Tobacco type: cigarettes and e-cigarettes/vaping Additional smoking assessment comments: Currently vapes Alcohol intake: never Substance use: current Substance use type: marijuana Other substance usage details: Daily Do You Feel Safe in your Home?: Yes Current Housing: Decline to Answer Concerned About Future Housing: Decline to Answer Difficulty Paying Gas/Electric Bills: Decline to Answer Difficulty Paying for Meds: Decline to Answer Education: Decline to Answer Difficulty w/ Childcare or Family Care: Decline to Answer Living arrangements: with family Spiritual care concerns: No Meds Home Medications and Allergies Home Medications ?Medication ?Instructions ?Recorded ?Confirmed ?Type CPAP supplies #1 ea 12/27/23 04/19/25 Rx escitalopram oxalate 10 mg tablet 10 mg PO DAILY #90 tabs 12/18/24 04/19/25 Rx (Lexapro) tirzepatide 2.5 mg/0.5 mL 2.5 mg (0.5 mL) subcut WEEKLY #2 mL 04/03/25 04/19/25 Rx subcutaneous pen injector (Mounlucretiaro) ondansetron 4 mg disintegrating 4 mg PO Q6H PRN nausea and 04/10/25 04/12/25 Rx tablet vomiting #4 tabs potassium 99 mg tablet 99 mg PO DAILY 04/10/25 04/19/25 History blood sugar diagnostic (Blood #100 ea 04/12/25 04/19/25 Rx Glucose Test strips) blood-glucose meter (Blood Glucose #1 ea 04/12/25 04/19/25 Rx Monitoring kit) metformin 500 mg tablet,extended 500 mg PO DAILY #90 tabs 04/12/25 04/19/25 Rx release 24 hr (Glucophage XR) Allergies Allergy/AdvReac Type Severity Reaction Status Date / Time No Known Allergies Allergy Verified 04/19/25 06:30 Vital Signs Vital Signs - 24 hr 04/19/25 06:31 Temperature 96.0 F L Pulse Rate 81 Respiratory Rate 16 Blood Pressure 109/69 Pulse Oximetry 98 Oxygen Delivery Room Air Exam Const: General: cooperative and healthy appearing Resp: Effort & Inspection: normal respiratory effort and able to speak in complete sentences Auscultation: clear to auscultation bilaterally Cardio: Rate: regular rate Rhythm: regular rhythm GI: Inspection: normal to inspection GI Palp: No No hepatosplenomegaly present Auscultation: normal bowel sounds Rectal Exam: deferred Skin: General skin exam: normal color Psych: Appearance: grossly normal Mental Status: mental status grossly normal Assessment and Plan Assessment and plan (1) Watery diarrhea: Code(s): R19.7 - Diarrhea, unspecified Status: Acute Assessment and Plan: The patient is deemed a good candidate for the procedures. Consent signed. Will proceed. (2) Crohn's colitis: Qualifiers: Digestive disease complication type: without complication Qualified Code(s): K50.10 - Crohn's disease of large intestine without complications Code(s): K50.10 - Crohn's disease of large intestine without complications Status: Acute
[2025-04-19] MEDS: BENZOCAINE (*SP) 60 ML SPRAY CAN (HURRICAINE) 1 SPRAY MUCOUS MEM (07:34)
--- NOTE | 2025-04-19 07:47 | SUR.OPER ---
EGD END 741 COLONOSCOPY START 746
--- NOTE | 2025-04-19 08:04 | S_PTH ---
PATIENT: John Mclean LOC: [facility] U#:[id number] AGE/SX: 50/F ROOM: RE04/19/[address]: Doc Dawson MD : 1975 BED: DIS: 04/19/2025 SPEC #: [id number] RECD: 04/19/25 09:52 STATUS: HAMIDA RETomasa #: [id number] SHARI: 04/19/25 08:[address]: Doc Dawson DEPT: [facility] Surgical RECD BY: Angeles Alvarez ENTERED: 04/19/25 09:56 SP TYPE: Surgical OTHR DR: Nico Marsh, RADHA Tissues: A - Gastric Biopsy B - Gastric Biopsy C - Duodenal Biopsy D - Small Bowel Bx E - Colon Biopsy F - Colon Biopsy G - Colon Polypectomy Procedures: Hematoxylin and Eosin Stain Gross and Microscopic Level 4
[2025-04-19 08:11] VITALS: BP 130/77; PULSE 817; RESP 20; O2SAT 98
[2025-04-19 08:21] VITALS: BP 123/75; PULSE 73; RESP 14; O2SAT 98
[2025-04-19 08:29] VITALS: BP 129/79; PULSE 76; RESP 17; O2SAT 98
== END 2025-04-19 08:50 | disposition home or self-care (01) ==
PROVIDERS: PCP Student in an Organized Health Care Education/Training Program; Referring Provider Nurse Practitioner Family; Visit Provider Internal Medicine Gastroenterology
PROC: 0DJ08ZZ Inspection of Upper Intestinal Tract, Via Natural or Artificial Opening Endoscopic (ICD-10-PCS; CPT 45378; principal; 2025-04-19 07:30)
DX: K50.10 Crohn's disease of large intestine without complications (principal); K63.3 Ulcer of intestine; K29.30 Chronic superficial gastritis without bleeding; D12.5 Benign neoplasm of sigmoid colon; E11.9 Type 2 diabetes mellitus without complications; F32.A Depression, unspecified; G47.33 Obstructive sleep apnea (adult) (pediatric); F41.9 Anxiety disorder, unspecified; F17.290 Nicotine dependence, other tobacco product, uncomplicated; F12.90 Cannabis use, unspecified, uncomplicated; E66.01 Morbid (severe) obesity due to excess calories; Z68.41 Body mass index [BMI] 40.0-44.9, adult; Z79.84 Long term (current) use of oral hypoglycemic drugs; Z79.85 Long-term (current) use of injectable non-insulin antidiabetic drugs; Z99.89 Dependence on other enabling machines and devices; Z98.890 Other specified postprocedural states; Z98.0 Intestinal bypass and anastomosis status; Z90.49 Acquired absence of other specified parts of digestive tract; Z85.9 Personal history of malignant neoplasm, unspecified; Z80.3 Family history of malignant neoplasm of breast; Z80.1 Family history of malignant neoplasm of trachea, bronchus and lung; Z80.52 Family history of malignant neoplasm of bladder
CPT/HCPCS: 43239; 45380; 45385; 82948; 88305; J2003; J2704; J7120

== ENCOUNTER 2025-04-26 15:34 | Outpatient (CLI) | payer OTHER, SELFPAY ==
--- NOTE | ~2025-04-26 | CT_ITS ---
CT lung screening INDICATION: Nicotine dependence, screening COMPARISON: None. TECHNIQUE: CT examination of the entire thorax without contrast was performed using low dose technique. Thin section axial, sagittal and coronal images were included to increase sensitivity for small lung nodules. FINDINGS: PULMONARY NODULES: No suspicious noncalcified pulmonary nodules. OTHER PULMONARY FINDINGS: No significant nonnodular pleural or parenchymal abnormality is noted. No emphysematous changes are present. No pathologically enlarged lymph nodes are present. Normal heart size. Mild coronary artery calcification to the limits of this nondedicated CT. UPPER ABDOMEN AND PERIPHERAL SOFT TISSUE: Limited views of the upper abdomen and peripheral soft tissue demonstrated no abnormalities. OSSEOUS STRUCTURES: Bone window shows no aggressive blastic or lytic lesions. IMPRESSION: 1. Lung-RADS category 1: No nodules or definitely benign nodules. Recommendations: 1 or 2: Annual screening with low-dose CT in 12 months. 2. No emphysematous changes are present. All CT scans at this facility are performed using low dose modulation techniques as appropriate to perform exam including the following: automated exposure control; use of iterative reconstruction technique; adjustment of the mA and/or kV according to patient size (this includes techniques or standardized protocols for targeted exams where dose is matched to indication/reason for exam). Reviewed, dictated and finalized at location S. IMPRESSION: 1. Lung-RADS category 1: No nodules or definitely benign nodules. Recommendations: 1 or 2: Annual screening with low-dose CT in 12 months. 2. No emphysematous changes are present. All CT scans at this facility are performed using low dose modulation techniqu es as appropriate to perform exam including the following: automated exposure c ontrol; use of iterative reconstruction technique; adjustment of the mA and/or kV according to patient size (this includes techniques or standardized protocol s for targeted exams where dose is matched to indication/reason for exam).
--- OUTSIDE RECORDS SUMMARY | 2025-04-26 16:31 | XMS_ITS | Clinical Summary ---
Author Organization [facility] Address [address] [place] [address] Care Team Providers Care Fish Conservationist Name Role Phone No, Physician Primary Care Provider [phone] Allergies No known active allergies Medications methocarbamoL [...] How often do you attend chur or scientologist services? Never 12/27/2020 Do you belong to any clubs o r organizations such as yazidi groups, unions, fraternal or athletic groups, or [...] staff should administer the PHQ-9) 0 12/27/2020 [facility] - Occupational [...] place to sleep or slept in a skilled nursing (including now)? 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 Not on file Not [...] Comments Blood Pressure 128/88 05/12/2024 3:15 PM GRAIN MILL PRODUCTS INSPECTOR Pulse 83 07/24/2023 10:21 PM GRAIN MILL PRODUCTS INSPECTOR Temperature 36.8 C (98.2 F) 07/24/2023 10:21 PM GRAIN MILL PRODUCTS INSPECTOR Respiratory Rate 16 07/24/2023 10:21 PM GRAIN MILL PRODUCTS INSPECTOR Oxygen Saturation 99% 07/24/2023 10:21 PM GRAIN MILL PRODUCTS INSPECTOR Inhaled Oxygen Concentration - - Weight 117.5 kg (259 lb) 05/12/2024 3:15 PM GRAIN MILL PRODUCTS INSPECTOR Height 165.1 cm (5' 5) 08/10/2023 2:07 PM GRAIN MILL PRODUCTS INSPECTOR Body Mass Index 43.1 08/10/2023 2:07 PM GRAIN MILL PRODUCTS INSPECTOR Plan of Treatment Health Maintenance Due Date [...] Read Routine (OP Routine) 08/10/2023 3:03 PM GRAIN MILL PRODUCTS INSPECTOR Screening mammogram, encounter for PAP AND HIGH RISK HPV, REFLEX TO GENOTYPING Routine 02/26/2022 12:06 PM CDT Screening for malignant neoplasm of the cervix Screening examination for venereal disease History of abnormal cervical Papanicolaou smear from Last 3 Months or Most Recently Relevant to Health Maintenance Results * Diagnostic Mammogram Bilateral W Ronal (08/10/2023 3:03 PM GRAIN MILL PRODUCTS INSPECTOR) Anatomical Region Laterality Modality Breast Bilateral Mammography Addenda Addendum by Be Vazquez MD on 09/06/2023 3:35 PM GRAIN MILL PRODUCTS INSPECTOR Comparison study dated 10/07/2016 has become available. There are benign calcifications of the breasts again noted. No new calcification or new density seen to suggest malignant process. Impression: BI-RADS category 2. Benign. Annual mammogram screening suggested. Narrative 08/10/2023 4:05 PM GRAIN MILL PRODUCTS INSPECTOR Bilateral BREAST DIGITAL MAMMOGRAM, diagnostic with tomography [...] PATHOLOGY CH - 03/03/2022 4:38 PM CDT [facility] Department of Pathology [address] [place] [id number] Final Report with Addendum Note to [...] the details. Patient Name: JOHN MCLEAN Address: [address] [place] [address] Gender: F : 1975 (Age: 46) Service: Laboratory Location: Lab [facility] #: [id number] Patient Type: Ref Lab Taken: 02/26/2022 Received: [...] determined by the Surgical Pathology Department at [facility] as part of an ongoing director quality systems program and in compliance with federally mandated [...] characteristics determined by the Surgical Pathology Department [facility]. It has not been cleared or approved by the U. S. Food and Drug Administration. Candis Corona DO LAB CYTOLOGY ORDERABLES Final Result Performing Organization Address City/State/[facility] Co de Phone Number PATHOLOGY [address] [place] [address] from Last 3 Months or Most Recently Relevant to Health Maintenance Insurance [facility] Member Subscriber Plan / Payer (Ef fective 2015-Present) Name:John Mclean Relation to Subscriber:Self Name:John Mclean Payer ID:[id number] (NAIC) Type:MEDICAID RISK OTHER Address: [place] [id number] Care Teams Fish Conservationist Relationship Specialty Start Date End Date No, Physician PCP - General 01/02/22
--- OUTSIDE RECORDS SUMMARY | 2025-04-26 16:31 | XMS_ITS ---
Author Organization [facility] Address [address] [place] [address] Care Team Providers Care System Administration Advisor Name Role Phone Unavailable Primary Care Provider [...]
--- OUTSIDE RECORDS SUMMARY | 2025-04-26 16:31 | XMS_ITS | Clinical Summary ---
Author Organization [facility] Address [address] [place] [address] Phone Care Team Providers Care Garbage Worker Name Role Phone Provider, None Primary Care [...] Comments Blood Pressure 125/71 07/11/2024 11:45 PM DETECTIVE LIEUTENANT Pulse 71 07/12/2024 12:15 AM DETECTIVE LIEUTENANT Temperature 36.8 C (98.3 F) 07/11/2024 9:01 PM DETECTIVE LIEUTENANT Respiratory Rate 16 07/11/2024 9:01 PM DETECTIVE LIEUTENANT Oxygen Saturation 96% 07/12/2024 12:15 AM DETECTIVE LIEUTENANT Inhaled Oxygen Concentration - - Weight 113.4 kg (250 lb) 07/11/2024 9:01 PM DETECTIVE LIEUTENANT Height 165.1 cm (5' 5) 07/11/2024 9:01 PM DETECTIVE LIEUTENANT Body Mass Index 41.6 07/11/2024 9:01 PM DETECTIVE LIEUTENANT Plan of Treatment Health Maintenance Due Date [...] Procedure Name Priority Date/Time Associated Diagnosis Comments [facility] SCREENING BILATERAL DIGITAL W CAD Routine 10/07/2016 [...] Comparison is made to exam dated: 10/20/2006 [facility]. BREAST TISSUE:There are scattered fibroglandular densities [...] signed by: Cecil Roca M.D. bs/penforeign:10/09/2016 08:58:07 Lube Worker: Chika MCNULTY)(Diana), [facility] letter sent: Normal Exam Reading location: [facility] BI-RADS: 1 Negative Procedure Note Cecil Roca MD - 10/09/2016 - [facility] SCREENING BILATERAL DIGITAL W CAD BILATERAL DIGITAL SCREENING MAMMOGRAM WITH CAD WITH MEDIOLATERAL OBLIQUE CRANIOCAUDAL: 10/07/2016 The study was acquired using digital technology and interpreted from soft copy. Current study was also evaluated with ICAD version 7.2. CLINICAL: Routine screening. Patient has no complaints. No personal history of cancer. Mother had breast cancer. COMPARISONS: Comparison is made to exam dated: 10/20/2006 [facility]. BREAST TISSUE:There are scattered fibroglandular densities [...] exam. Electronically signed by: Cecil flores/kirsten:10/09/2016 08:58:07 Lube Worker: Chika MCNULTY)(M), [facility] letter sent: Normal Exam Reading location: [facility] BI-RADS: 1 Negative us Jes Buitrago MD IMG MAMMO ORDERABLES Final Resu lt from Last 3 Months or Most Recently Relevant to Health Maintenance Insurance MEDICAID [place] Care Teams Garbage Worker Relationship Specialty Start Date End Date Provider, None [place] PCP - General 09/10/19
--- OUTSIDE RECORDS SUMMARY | 2025-04-26 16:31 | XMS_ITS | Clinical Summary ---
Author Organization [facility] Address [address] [place] [address] Care Team Providers Care Machinist First Class Name Role Phone Unavailable Primary Care Provider Unavailabl e Source Comments [facility],non-owned Affiliates and Associated Physician Practices is amultiple site organization consisting of ambulatory clinics and hospital sitesin [place], [place], [place] and [place]. This disclosure is being madepursuant to the Care Everywhere program and may not contain all information available regarding this patient. Last updated 18.[facility] [facility] Allergies No known active allergies Medications * [...] Patient not taking.Reported on 08/06/2022 HYDROcodone-ac etaminophen (Davin) 5-325 MG tablet Take 1 (one) tablet [...] on file Legal Sex Female 6:16 AM [employer] ADMINISTRATOR Gender Identity Not on file Sexual Orientation Not on file Last Filed Vital Signs Vital Sign Reading Time Taken Comments Blood Pressure 126/78 08/06/2022 10:32 AM [employer] ADMINISTRATOR Pulse 79 07/27/2022 9:10 AM [employer] ADMINISTRATOR Temperature 37.1 C (98.8 F) 07/27/2022 7:43 AM [employer] ADMINISTRATOR Respiratory Rate 16 07/27/2022 9:20 AM [employer] ADMINISTRATOR Oxygen Saturation 95% 07/27/2022 9:20 AM [employer] ADMINISTRATOR Inhaled Oxygen Concentration - - Weight 105.7 kg (233 lb) 08/06/2022 10:32 AM [employer] ADMINISTRATOR Height 165.1 cm (5' 5) 08/06/2022 10:32 AM [employer] ADMINISTRATOR Body Mass Index 38.77 08/06/2022 10:32 AM [employer] ADMINISTRATOR Plan of Treatment Health Maintenance Due Date [...] this topic Medical Devices Implanted Type Area Bench Mechanic Device Identifier Shelf Expiration Date Model / Serial / Lot Mesh Srg Phasix 8x6in Rect Mfl [place] Implanted:Qty: 1 on 05/12/2022 by Edel Dia MD at [facility] Abdomen [employer] [id number] / / [id number] Description:JJ Procedures Procedure Name Priority Date/Time Associated Diagnosis Comments RENAL FUNCTION PANEL AM Draw 05/14/2022 6:56 AM [employer] ADMINISTRATOR from Last 3 Months or Most Recently Relevant to Health Maintenance Results * (ABNORMAL) RENAL FUNCTION PANEL (05/14/2022 6:56 AM [employer] ADMINISTRATOR) [facility] Glucose 99 70 - 105 mg/dL 05/14/2022 8:01 AM [employer] ADMINISTRATOR [facility] Sodium 141 136 - 145 mmol/L 05/14/2022 8:01 AM [facility] Potassium 3.7 3.5 - 5.1 mmol/L 05/14/2022 8:01 AM [facility] Chloride 107 98 - 107 mmol/L 05/14/2022 8:01 AM [facility] CO2 21(L) 23 - 31 mmol/L 05/14/2022 8:01 AM [facility] Calcium 8.7 8.4 - 10.4 mg/dL 05/14/2022 8:01 AM [facility] Anion Gap 13 8 - 18 mmol/L 05/14/2022 8:01 AM [facility] BUN 11 7 - 18.7 mg/dL 05/14/2022 8:01 AM [facility] Creatinine 0.80 0.57 - 1.11 mg/dL 05/14/2022 8:01 AM [facility] Albumin 3.4(L) 3.5 - 5.2 gm/dL 05/14/2022 8:01 AM [facility] Phosphorus 2.6 2.3 - 4.7 mg/dL 05/14/2022 8:01 AM [facility] eGFR by CKD-EPI >90 >=90 mL/min/1.7 3 m2 05/14/2022 8:01 AM [facility] Blood BLOOD SPECIMEN / Unknown Lab Venipuncture / Unknown 05/14/2022 6:56 AM [employer] ADMINISTRATOR 05/14/2022 7:37 AM [facility] Sai Little MD LAB - CHEMISTRY ORDERABLES Final Result Performing Organization Address City/State/[facility] Co de Phone Number [facility] [address] [place] [address] from Last 3 Months or Most Recently Relevant to Health Maintenance [place] [address] [place] [address] [facility] S[facility] NO INSURANCE Member Subscriber Plan / Payer (Ef fective for All Dates) Name:Vinay Roma A Member ID:Not on file Relation to Subscriber:Not on file Name:ROMA MCLEAN Nesha Subscriber ID:Not on file (Home) Address: [address] [place] [id number] Payer ID:Not on file Group ID:Not on file Type:Self Pay Address: [place], [place] * Guarantor: ROMA MCLEAN Account Type Relation to Patient Date of Phone Billing Address Personal/Family [address] [place] [address] [facility] SELF PA[employer] NO INSURANCE Member Subscriber Plan / Payer (Ef fective for All Dates) Name:Roma Mclean Nesha Member ID:Not on file Relation to Subscriber:Not on file Name:VINAYLENAROMA Subscriber ID:Not on file Address: [address] [place] [address] Payer ID:Not on file Group ID:Not on file Type:Self Pay Address: [place], [place] * Guarantor: ROMA MCLEAN Account Type Relation to Patient Date of Phone Billing Address Personal/Family [address] [place] [address] [facility] SEL[employer] PA[employer] NO INSURANCE Member Subscriber Plan / Payer (Ef fective for All Dates) Name:Roma Mclean Member ID:Not on file Relation to Subscriber:Not on file Name:ROMA MCLEAN Subscriber ID:Not on file Address: [address] [place] [address] Payer ID:Not on file Group ID:Not on file Type:Self Pay Address: [place], [place] * Guarantor: ROMA MCLEAN Account Type Relation to Patient Date of Phone Billing Address Personal/Family [address] [place] [address] [facility] SEL[employer] PA[employer] NO INSURANCE Member Subscriber Plan / Payer (Ef fective for All Dates) Name:Roma Mclean Member ID:Not on file Relation to Subscriber:Not on file Name:ROMA MCLEAN Subscriber ID:Not on file Address: [address] [place] [phone] Payer ID:Not on file Group ID:Not on file Type:Self Pay Address: [place], [place]
== END 2025-04-26 15:35 | disposition home or self-care (01) ==
PROVIDERS: PCP Student in an Organized Health Care Education/Training Program; Visit Provider Student in an Organized Health Care Education/Training Program
DX: Z12.2 Encounter for screening for malignant neoplasm of respiratory organs (principal); Z87.891 Personal history of nicotine dependence
CPT/HCPCS: 71271

== ENCOUNTER 2025-06-11 07:50 | Outpatient (CLI) | payer OTHER, SELFPAY | END 2025-06-11 07:51 | disposition home or self-care (01) | LOC: ANHAUDASC 07:51 | PROVIDERS: PCP Student in an Organized Health Care Education/Training Program; Visit Provider Otolaryngology | DX: H90.3 Sensorineural hearing loss, bilateral (principal); H61.23 Impacted cerumen, bilateral | CPT/HCPCS: 92557; 92567 ==